=== PATIENT | male | born 1955 | race Caucasian/White ===

== ENCOUNTER 2025-08-11 08:14 | Inpatient (IN) | payer OTHER ==
[2025-08-11] VITALS (11 sets, daily range): BP systolic 133–151; BP diastolic 77–83; PULSE 64–79; RESP 16–22; TEMP 97.9–98.8; O2SAT 92–100
[~2025-08-11] VITALS: Ht 182.9 cm; Wt 87.0 kg
--- NOTE | 2025-08-11 09:03 | ED.PDOC ---
HPI Comments 70 year old male with PMHx of DM, HTN, and cardiovascular problems presents to the emergency department for chief complaint of shortness of breath that began 6 days ago. Pt also reports associated symptoms of a prolonged cough that causes a chest pain and radiates from the sternum to the lower right side of the chest. Pt also reports no normal bowel movement since 2 days ago. Pt denies syncope, dizziness, headache, fever, or chills. Chief Complaint: Shortness of Breath Time Seen by MD: 09:00 Reviewed Notes: Nurses Notes, Medications, Allergies Allergies: Coded Allergies: NO KNOWN ALLERGIES (Unverified , 08/11/25) per patient Information Source: Patient Mode of Arrival: Ambulatory Severity: Moderate Timing: Days Duration: Since onset Prehospital treatment: None Location: Chest (R), Substernal Cardiac Risk Factors: HTN, Diabetes PE Risk Factors: None Associated Signs and Symptoms: SOB, Other (chest pain, cough) Past Medical History PAST MEDICAL HISTORY: DM, HTN Constitutional: denies: chills, diaphoresis, fatigue, fever, malaise, sweats, weakness, others EENTM: denies: blurred vision, double vision, ear bleeding, ear discharge, ear drainage, ear pain, ear ringing, eye pain, eye redness, hearing loss, mouth pain, mouth swelling, nasal discharge, nose bleeding, nose congestion, nose pain, photophobia, tearing, throat pain, throat swelling, voice changes, others Respiratory: reports: cough, SOB at rest, shortness of breath, SOB with excertion; denies: hemoptysis, orthopnea, stridor, wheezing, others Cardiovascular: reports: chest pain; denies: dizzy spells, diaphoresis, Dyspnea on exertion, edema, irregular heart beat, left arm pain, lightheadedness, palpitations, PND, syncope, others Gastrointestinal: denies: abdomen distended, abdominal pain, blood streaked bowels, constipated, diarrhea, dysphagia, difficulty swallowing, hematemesis, melena, nausea, poor appetite, poor fluid intake, rectal bleeding, rectal pain, vomiting, others Genitourinary: denies: burning, dysuria, flank pain, frequency, hematuria, incontinence, penile discharge, penile sore, pain, testicle pain, testicle swelling, urgency, others Neurological: denies: dizziness, fainting, headache, left sided numbness, left sided weakness, numbness, paresthesia, pre-existing deficit, right sided numbness, right sided weakness, seizure, speech problems, tingling, tremors, weakness, others Musculoskeletal: denies: back pain, gout, joint pain, joint swelling, muscle pain, muscle stiffness, neck pain, others Integumetry: denies: bruises, change in color, change in hair/nails, dryness, laceration, lesions, lumps, rash, wounds, others Allergic/Immunocompromised: denies: Difficulty Healing, Frequent Infections, Hives, Itching, others Hematologic/Lymphatic: denies: anemia, blood clots, easy bleeding, easy bruising, swollen glands, others Endocrine: denies: excessive hunger, excessive sweating, excessive thirst, excessive urination, flushing, intolerance to cold, intolerance to heat, unexplained weight gain, unexplained weight loss, others Psychiatric: denies: anxiety, bipolar disorder, depression, hopeless, panic disorder, schizophrenia, sleepless, suicidal, others All Other Systems: Reviewed and Negative Physical Exam General Appearance: Moderate Distress HEENT: Normal ENT Inspection, Pharynx Normal, TMs Normal Neck: Full Range of Motion, Non-Tender, Normal, Normal Inspection Respiratory: Other (Coarse breath sounds) Cardiovascular: No Edema, No JVD, No Murmur, No Gallop, Normal Peripheral Pulses, Regular Rate/Rhythm Breast Exam: Deferred Gastrointestinal: No Organomegaly, Non Tender, No Pulsatile Mass, Normal Bowel Sounds, Soft Genitalia: Deferred Pelvic: Deferred Rectal: Deferred Extremities: No calf tenderness, Normal capillary refill, Normal inspection, Normal range of motion, Non-tender, No pedal edema Musculoskeletal : Apperance: Normal Neurologic: Alert, 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 Was a procedure done?: No CP Differential Dx Differential Diagnosis: A-fib, A-Flutter, Angina, Anxiety / Panic Attack, Atrial Dysrhythmia, Electrolyte Disorder X-Ray, Labs, Meds, VS Vital Signs Date Time Temp Pulse Resp B/P (MAP) Pulse Ox O2 Delivery O2 Flow Rate FiO2 12/22/25 14:23 98.8 69 16 135/79 (97) 99 98.8 08/11/25 11:14 99.4 64 16 134/73 (93) 95 99.4 08/11/25 08:31 98.2 69 18 153/85 96 98.2 Lab Test 08/11/25 10:52 Range/Units White Blood Count 8.2 4.4-10.8 10^3/uL Red Blood Count 5.07 4.5-5.90 10^6/uL Hemoglobin 15.4 13.5-17.5 g/dL Hematocrit 45.2 41.0-53.0 % Mean Corpuscular Volume 89.3 80.0-100.0 fL Mean Corpuscular Hemoglobin 30.4 28.0-32.0 pg Mean Corpuscular Hemoglobin Concent 34.1 32.0-36.0 g/dL Red Cell Distribution Width 14.6 H 11.8-14.3 % Platelet Count 213 140-450 10^3/uL Mean Platelet Volume 8.8 6.9-10.8 fL Neutrophils (%) (Auto) 72.3 37.0-80.0 % Lymphocytes (%) (Auto) 16.1 10.0-50.0 % Monocytes (%) (Auto) 10.5 0.0-12.0 % Eosinophils (%) (Auto) 0.4 0.0-7.0 % Basophils (%) (Auto) 0.7 0.0-2.0 % Neutrophils # (Auto) 5.9 1.6-8.6 10 ^3/uL Lymphocytes # (Auto) 1.3 0.4-5.4 10 ^3/uL Monocytes # (Auto) 0.9 0-1.3 10 ^3/uL Eosinophils # (Auto) 0 0-0.8 10 ^3/uL Basophils # (Auto) 0.1 0-0.2 10 ^3/uL Nucleated Red Blood Cells 0.1 % Sodium Level 139 136-145 mmol/L Potassium Level 3.4 L 3.5-5.1 mmol/L Chloride Level 99 98-107 mmol/L Carbon Dioxide Level 31 20-31 mmol/L Anion Gap 9 5-15 Blood Urea Nitrogen 10 9-23 mg/dL Creatinine 1.38 H 0.700-1.30 mg/dL Glomerular Filtration Rate Calc 54 >90 mL/min BUN/Creatinine Ratio 7.2 L 10.0-20.0 Serum Glucose 113 H 74-106 mg/dL Calcium Level 9.8 8.7-10.4 mg/dL Troponin I High Sensitivity 18 </=54 ng/L Patient alert. Came in because of shortness breath chest discomfort. Vitals stable. Answering all questions. Saturation pristine on room air. Blood pressure slightly elevated. Explained to the patient. Continue monitoring. Time of 1ST Reevaluation: 09:30 Reevaluation 1ST: Unchanged Patient Education/Counseling: Diagnosis, Treatment, Need For Follow Up Family Education/Counseling: Diagnosis, Treatment, Need For Follow Up, No Family Present SEPSIS Sepsis Screen Date sepsis recognized/suspect: Aug 11, 2025 Time Sepsis recognized/suspect: 830 Recent Procedure: No On Antibiotic Therapy: No Respiratory Rate >20: No Heart Rate >90: No Temp<36 C (96.8 F) or >38.3 C: No SBP <90 or MAP <65 mmHG: No New Acute Mental Status Change: No Is the patient on CPAP, BIPAP,: No Physician Orders Chest Portable (08/11/25 09:05) Urinalysis (08/11/25 09:05) Vital Signs Date Time Temp Pulse Resp B/P (MAP) Pulse Ox O2 Delivery O2 Flow Rate FiO2 08/11/25 14:23 98.8 69 16 135/79 (97) 99 98.8 08/11/25 11:14 99.4 64 16 134/73 (93) 95 99.4 08/11/25 08:31 98.2 69 18 153/85 96 98.2 Laboratory Tests Test 08/11/25 10:52 White Blood Count 8.2 10^3/uL (4.4-10.8) Departure 1 Departure Time of Disposition: 09:54 Impression: Primary Impression: Pneumonitis Disposition: 09 ADMITTED INPATIENT Admit to: Med Surg Condition: Guarded Critical Care Note Critical Care Time?: No Stability Stability form required: No Heart Score Heart Score: Heart Score Response (Comments) Value History Slightly Suspicious 0 EKG Normal 0 Age >65 2 Risk Factors >3 or Hx ASHD 2 Troponin Normal limit 0 Total 4 I personally scribed for LUCIAN ZARCO MD ([email or web address]) on 08/11/25 at 09:03. Electronically submitted by Jackeline Schmidt ([email or web address]). LUCIAN ZARCO MD Aug 11, 2025 09:03
--- NOTE | 2025-08-11 09:36 | DVH ---
CLINICAL INFORMATION: 70 years old, Male; sob. TECHNIQUE: Single AP portable chest radiograph was obtained. COMPARISON: None FINDINGS: Lungs: Clear. Cardiac: Heart size is within normal limits. Pulmonary vasculature: Unremarkable. Mediastinum/gianfranco: Moderate atherosclerotic calcification of the aortic arch. Bones: No acute osseous abnormality identified. Other: No other significant findings. IMPRESSION: No evidence of acute disease in the chest.
[2025-08-11 11:30] LABS: Hematocrit 45.2 % (41.0-53.0); Hemoglobin 15.4 g/dL (13.5-17.5); Mean Corpuscular Hemoglobin 30.4 pg (28.0-32.0); Mean Corpuscular Volume 89.3 fL (80.0-100.0); Nucleated Red Blood Cells % 0.1 %
[2025-08-11 11:32] LABS: Chloride 99 mmol/L (98-107); Sodium 139 mmol/L (136-145)
[2025-08-11 11:33] LABS: Anion Gap 9 (5-15); Calcium 9.8 mg/dL (8.7-10.4)
[2025-08-11 11:35] LABS: Carbon Dioxide 31 mmol/L (20-31); Potassium 3.4 mmol/L (3.5-5.1)
[2025-08-11 11:38] LABS: BUN/Creatinine Ratio 7.2 (10.0-20.0); Blood Urea Nitrogen 10 mg/dL (9-23)
[2025-08-11 11:52] LABS: Glucose 113 mg/dL (74-106)
[2025-08-11] MEDS ORDERED: DOCUSATE SOD 100 MG CAP PO PRN (14:30)
--- NOTE | 2025-08-11 14:52 | DVHHP2 ---
History of Present Illness Reason for Visit: Shortness of breath History of Present Illness Manuel Noyola is a 70-year-old male with past medical history of diabetes, hypertension, and hyperlipidemia, who came to the hospital for shortness of breath. Patient states he has been short of breath for about 1 week. He states he has had a cough and shortness of breath for about 1 week. He states he began having chest pain when he coughs and now the pain goes all the was down to his abdomen when he coughs prompting him to come to the hospital. Patient denied any drug use and stated he quite using drugs years ago, UDS was positive for methamphetamines. Cardiovascular: HTN, hyperipidemia Endocrine: Diabetes Past Surgical History: Other (right foot, right leg) Smoke: Quit (Monday08/03/2025) ALCOHOL: rare Drugs: None Lives: Other (Rents a room) Domestic Violence: Neg Review of Systems Constitutional: No: Fever, Chills, Sweats, Weakness, Malaise, Other Eyes: No: Pain, Vision change, Conjunctivae inflammation, Eyelid inflammation, Other, Redness ENT: No: Ear pain, Ear discharge, Nose pain, Nose discharge, Nose congestion, Mouth pain, Mouth swelling, Throat pain, Throat swelling, Other Respiratory: No: Cough, Dry, Shortness of breath, SOB with excertion, Wheezing, Hemoptysis, Pleuritic Pain, Sputum, Wheezing, Other Cardiovascular: No: Chest Pain, Palpitations, Orthopnea, Paroxysmal Noc. Dyspnea, Edema, Lt Headedness, Other Gastrointestinal: No: Nausea, Vomiting, Abdominal Pain, Diarrhea, Constipation, Melena, Hematochezia, Other Genitourinary: No Dysuria, No Frequency, No Incontinence, No Hematuria, No Retention, No Other Musculoskeletal: No: other, neck pain, shoulder pain, arm pain, back pain, hand pain, leg pain, foot pain Skin: No: Rash, Lesions, Jaundice, Bruising, Other Neurological: No: Weakness, Numbness, Incoordination, Change in speech, Confusion, Seizures, Other Allergies: Coded Allergies: NO KNOWN ALLERGIES (Unverified , 08/11/25) per patient Exam Vital Signs Vital Signs Date Time Temp Pulse Resp B/P (MAP) Pulse Ox O2 Delivery O2 Flow Rate FiO2 08/11/25 14:23 98.8 69 16 135/79 (97) 99 98.8 General Appearance: Alert, Oriented X3, Cooperative, mild distress HEENT: Atraumatic, PERRLA, Mucous membr. moist/pink Respiratory: Clear to auscultation, Normal air movement Cardiovascular: Regular rate, Normal S1, Normal S2 Abdominal: Normal bowel sounds, Soft, No tenderness Extremities: No clubbing, No cyanosis, No edema, Normal pulses Skin: No rashes, No breakdown, No significant lesion Neuro: Normal gait, Normal speech, Strength at 5/5 X4 ext Psych/Mental Status: Mental status NL, Mood NL Labs/Xrays Labs Test 08/11/25 10:52 Range/Units White Blood Count 8.2 4.4-10.8 10^3/uL Red Blood Count 5.07 4.5-5.90 10^6/uL Hemoglobin 15.4 13.5-17.5 g/dL Hematocrit 45.2 41.0-53.0 % Mean Corpuscular Volume 89.3 80.0-100.0 fL Mean Corpuscular Hemoglobin 30.4 28.0-32.0 pg Mean Corpuscular Hemoglobin Concent 34.1 32.0-36.0 g/dL Red Cell Distribution Width 14.6 H 11.8-14.3 % Platelet Count 213 140-450 10^3/uL Mean Platelet Volume 8.8 6.9-10.8 fL Neutrophils (%) (Auto) 72.3 37.0-80.0 % Lymphocytes (%) (Auto) 16.1 10.0-50.0 % Monocytes (%) (Auto) 10.5 0.0-12.0 % Eosinophils (%) (Auto) 0.4 0.0-7.0 % Basophils (%) (Auto) 0.7 0.0-2.0 % Neutrophils # (Auto) 5.9 1.6-8.6 10 ^3/uL Lymphocytes # (Auto) 1.3 0.4-5.4 10 ^3/uL Monocytes # (Auto) 0.9 0-1.3 10 ^3/uL Eosinophils # (Auto) 0 0-0.8 10 ^3/uL Basophils # (Auto) 0.1 0-0.2 10 ^3/uL Nucleated Red Blood Cells 0.1 % Sodium Level 139 136-145 mmol/L Potassium Level 3.4 L 3.5-5.1 mmol/L Chloride Level 99 98-107 mmol/L Carbon Dioxide Level 31 20-31 mmol/L Anion Gap 9 5-15 Blood Urea Nitrogen 10 9-23 mg/dL Creatinine 1.38 H 0.700-1.30 mg/dL Glomerular Filtration Rate Calc 54 >90 mL/min BUN/Creatinine Ratio 7.2 L 10.0-20.0 Serum Glucose 113 H 74-106 mg/dL Calcium Level 9.8 8.7-10.4 mg/dL Troponin I High Sensitivity 18 </=54 ng/L TECHNIQUE: Single AP portable chest radiograph was obtained. FINDINGS: Lungs: Clear. Cardiac: Heart size is within normal limits. Pulmonary vasculature: Unremarkable. Mediastinum/gianfranco: Moderate atherosclerotic calcification of the aortic arch. Bones: No acute osseous abnormality identified. Other: No other significant findings. IMPRESSION: No evidence of acute disease in the chest. SEPSIS Sepsis Screen Date sepsis recognized/suspect: Aug 11, 2025 Time Sepsis recognized/suspect: 830 Recent Procedure: No On Antibiotic Therapy: No Respiratory Rate >20: No Heart Rate >90: No Temp<36 C (96.8 F) or >38.3 C: No SBP <90 or MAP <65 mmHG: No New Acute Mental Status Change: No Is the patient on CPAP, BIPAP,: No Physician Orders Chest Portable (08/11/25 09:05) Urinalysis (08/11/25 09:05) Admit (08/11/25 14:26) Code Status (08/11/25 14:26) 2 Gm Sodium Diet (08/11/25 Dinner) Hydrocodone-Acet 5/325mg Tab ([place] /32 (08/11/25 14:30) Ondansetron Hcl (Zofran) (08/11/25 14:30) Docusate Sodium Capsule (Colace Capsule) (08/11/25 14:30) Complete Blood Count (08/12/25 04:00) Comprehensive Metabolic Panel (08/12/25 04:00) Condition: Serious (08/11/25 14:26) Acetaminophen Tablet (Tylenol Tablet) (08/11/25 14:30) Vital Signs Date Time Temp Pulse Resp B/P (MAP) Pulse Ox O2 Delivery O2 Flow Rate FiO2 08/11/25 14:23 98.8 69 16 135/79 (97) 99 98.8 08/11/25 11:14 99.4 64 16 134/73 (93) 95 99.4 08/11/25 08:31 98.2 69 18 153/85 96 98.2 Laboratory Tests Test 08/11/25 10:52 White Blood Count 8.2 10^3/uL (4.4-10.8) Assessment/Plan Assessment/Plan Assessment: Pneumonitis, Illicit drug use, Diabetes, Hypertension, Hyperlipidemia, Plan: Admit to Med-Surg, IV steroids, Breathing treatments, Supplemental oxygen as needed, Accu checks with sliding scale, Patient does not know what home medications he takes, Plan discussed with: Patient My Orders Orders - THERESA BENNETT Procedure Category Date Status Time Admit ADMIT 08/11/25 Transmitted 14:26 Code Status CODE 08/11/25 Transmitted 14:26 2 Gm Sodium Diet DIET 08/11/25 Transmitted Dinner Hydrocodone-Acet PHA 08/11/25 Transmitted 5/325mg Tab ([place] 14:30 Ondansetron Hcl PHA 08/11/25 Transmitted (Zofran) 14:30 Docusate Sodium PHA 08/11/25 Transmitted Capsule (Colace 14:30 Complete Blood Count LAB 08/12/25 Verified 04:00 Comprehensive LAB 08/12/25 Verified Metabolic Panel 04:00 Condition: Serious BIANKA 08/11/25 Transmitted 14:26 Acetaminophen Tablet PHA 08/11/25 Transmitted (Tylenol Tablet) 14:30 Date of Service: Aug 11, 2025 Billing Provider: THERESA BENNETT Common Visit Codes: [id number] INP/OBS CARE (MOD) THERESA BENNETT Aug 11, 2025 14:52
[2025-08-11] MEDS: IPRATROPIUM BROM 0.5 MG/2.5ML INH SOL NEB SCH (17:53)
[2025-08-11] MEDS: ALBUTEROL SULF 2.5 MG/0.5ML(0.5%) NEB SOLN NEB SCH (17:53)
[2025-08-11 21:04] LABS: Urine Protein, UAD TRACE (Negative)
[2025-08-11 21:09] LABS: Amphetamine Screen, Urine Pos (NEGATIVE); Barbiturate Scree,Urine Neg (NEGATIVE); Benzodiazephine Screen, Urine Neg (NEGATIVE); Cannabinoid Screen, Urine Neg (NEGATIVE); Cocaine Screen, Urine Neg (NEGATIVE); Opiate Scree,Urine Neg (NEGATIVE); Phencyclidine Screen, Urine Neg (NEGATIVE)
[2025-08-11] MEDS: methylPREDNISolone SOD SUCC 40 MG/ML VL IV SCH (23:59)
[2025-08-12] VITALS (13 sets, daily range): BP systolic 134–154; BP diastolic 76–92; PULSE 57–95; RESP 16–18; TEMP 97.7–99.6; O2SAT 91–99
[2025-08-12] MEDS: HYDROcodone-ACET 5/325MG TAB PO PRN
[2025-08-12 06:02] LABS: Hematocrit 43.5 % (41.0-53.0); Hemoglobin 14.8 g/dL (13.5-17.5); Mean Corpuscular Hemoglobin 29.9 pg (28.0-32.0); Mean Corpuscular Volume 87.8 fL (80.0-100.0); Nucleated Red Blood Cells % 0.1 %
[2025-08-12 06:48] LABS: Alanine Aminotransferase 15 U/L (7-40); Albumin 4.3 g/dL (3.2-4.8); Alkaline Phosphatase 67 U/L (46-116); Anion Gap 11 (5-15); BUN/Creatinine Ratio 13.4 (10.0-20.0); Bilirubin, Total 0.6 mg/dL (0.2-1.0); Blood Urea Nitrogen 16 mg/dL (9-23); Calcium 9.4 mg/dL (8.7-10.4); Carbon Dioxide 26 mmol/L (20-31); Chloride 101 mmol/L (98-107); Sodium 138 mmol/L (136-145); Total Protein 7.1 g/dL (5.7-8.2)
[2025-08-12 06:50] LABS: Glucose 148 mg/dL (74-106); Potassium 3.5 mmol/L (3.5-5.1)
--- NOTE | 2025-08-12 07:37 | DVH ---
CLINICAL INFORMATION: Shortness of breath. TECHNIQUE: Single AP portable chest radiograph was obtained. COMPARISON: XY CHEST PORTABLE on DOS: 08/11/25 FINDINGS: Bilateral interstitial opacities appear to be new compared to the prior exam. No focal consolidation. No pneumothorax or pleural effusion. No other significant interval change. IMPRESSION: Bilateral interstitial opacities, may be infectious or inflammatory in nature or less likely due to interstitial pulmonary edema. New compared to the prior exam. Correlate with clinical findings.
--- NOTE | 2025-08-12 12:55 | DVHPN2 ---
Subjective Patient reporting right flank pain. Reviewed: Care Plan, H&P, Labs, Medications Changes from previous H/P or p: No Changes General: Per HPI Eyes: No Pain, No Vision change, No Conjunctivae inflammation, No Eyelid inflammation, No Other, No Redness ENT: No Ear pain, No Ear discharge, No Nose pain, No Nose discharge, No Nose congestion, No Mouth pain, No Mouth swelling, No Throat pain, No Throat swelling, No Other Cardiovascular: No Chest Pain, No Palpitations, No Orthopnea, No Paroxysmal Noc. Dyspnea, No Edema, No Lt Headedness, No Other Respiratory: No Cough, No Dry, No Shortness of breath, No SOB with excertion, No Wheezing, No Hemoptysis, No Pleuritic Pain, No Sputum, No Other Gastrointestinal: No Nausea, No Vomiting, No Abdominal Pain, No Diarrhea, No Constipation, No Melena, No Hematochezia, No Other Genitourinary: No Dysuria, No Frequency, No Incontinence, No Hematuria, No Retention, No Other Musculoskeletal: No other, No neck pain, No shoulder pain, No arm pain, No back pain, No hand pain, No leg pain, No foot pain Skin: No Rash, No Lesions, No Jaundice, No Bruising, No Other Objective Vitals Vital Signs Date Time Temp Pulse Resp B/P (MAP) Pulse Ox O2 Delivery O2 Flow Rate FiO2 08/12/25 11:24 65 16 99 08/12/25 11:18 Nasal Cannula* 2 28 08/12/25 09:09 97.8 145/82 (103) 97.8 Intake/Output Intake and Output 08/12/25 07:00 Intake Total 637 ml Balance 637 ml Intake Oral 637 ml # Voids 5 General Appearance: Alert, Oriented X3, Cooperative, No acute distress HEENT: Atraumatic, PERRLA Lungs: Clear to auscultation, Normal air movement Cardiovascular: Normal S1, Normal S2 Abdomen: Normal bowel sounds, Soft, No tenderness, No hepatospenomegaly Back: Flank Tenderness (Right) Musculoskeletal: Normal sensory function, Normal motor function Neuro: Normal speech Skin: Dry, Intact Psych/Mental Status: Mental status NL, Mood NL Medications Current Medications Medications Dose Ordered Sig/Curtis Route Start Time Stop Time Status Last Admin Dose Admin Acetaminophen/ Hydrocodone Bitart 1 tab Q4HP PRN PO 08/11/25 14:30 08/12/25 11:51 1 TAB Ondansetron HCl 4 mg Q4HP PRN IV 08/11/25 14:30 Docusate Sodium 100 mg BIDPRN PRN PO 08/11/25 14:30 Acetaminophen 650 mg Q6HP PRN PO 08/11/25 14:30 Ipratropium [place] 0.5 mg Q6HWA NEB 08/11/25 18:00 08/12/25 11:18 0.5 MG Albuterol 2.5 mg Q6HWA [facility] 08/11/25 18:00 08/12/25 11:18 2.5 MG Methylprednisolone Sodium Succinate 40 mg BID IV 08/11/25 22:00 08/11/25 23:59 40 MG Laboratory Results Laboratory Tests 08/12/25 05:29 Chemistry Test 08/12/25 05:29 Albumin 4.3 g/dL (3.2-4.8) Calcium Level 9.4 mg/dL (8.7-10.4) Total Protein 7.1 g/dL (5.7-8.2) LFT Test 08/12/25 05:29 Alanine Aminotransferase (ALT) 15 U/L (7-40) Alkaline Phosphatase 67 U/L (46-116) Aspartate Amino Transferase (AST) 29 U/L (13-40) Total Bilirubin 0.6 mg/dL (0.2-1.0) Urinalysis Test 08/11/25 14:30 Urine Color Yellow (Yellow) Urine Clarity Clear (Clear) Urine pH 5.5 (5.0-9.0) Urine Specific [place] 1.019 (1.001-1.035) Urine Protein Trace (Negative) H Urine Ketones Trace (Negative) Urine Blood 2+ /uL (Negative) H Urine Nitrite Negative (Negative) Urine Bilirubin Negative (Negative) Urine Urobilinogen Normal mg/dL (Negative) Urine Leukocyte Esterase Negative /uL (Negative) Urine RBC 13 /hpf (0 - 3) Urine Microscopic WBC 5 /HPF (0-3) H Urine Squamous Epithelial Cells Few /hpf (<5) Urine Bacteria None seen /hpf (None Seen) Urine Mucus Few (None Seen) Urine Glucose 4+ mg/dL (Normal) H Labs and/or images reviewed: Labs reviewed by me, Image(s) reviewed by me Assessment/Plan Assessment/Plan Impression: -acute hypoxic respiratory failure -polysubstance abuse including amphetamines and nicotine -hematuria -Nephrolithiasis -acute kidney injury, probable vasomotor nephropathy -acute pneumonitis secondary to amphetamine use Plan: -kidney ultrasound -gentle IV hydration -lorazepam PRN withdrawal symptoms -bronchodilators -Lifestyle modification education: 10 minutes discussed with the patient need to stop smoking illicit drugs -repeat labs in a.m. Total time spent with patient discussing and formulating plan of care: 35 minutes. This medical document was created using an electronic medical record system with [employer] dictation system. Although this document has been carefully reviewed, there may still be some phonetic and typographical errors. These areas are purely typographical due to imperfections of the software programs, and do not reflect any compromise in the patient's medical care. Plan discussed with: Patient, Other (RN) My Orders Orders - ABBIE TOSCANO NP Procedure Category Date Status Time Kidney US 08/12/25 Taken 12:20 Date of Service: Aug 12, 2025 Billing Provider: ABBIE TOSCANO NP Common Visit Codes: [id number] INP/OBS CARE(HIGH) ABBIE TOSACNO NP Aug 12, 2025 12:55
--- NOTE | 2025-08-12 13:21 | DVH ---
CLINICAL HISTORY: nephrolithiasis TECHNIQUE: Complete ultrasound exam of the kidneys and bladder was performed. COMPARISON: None FINDINGS: The right kidney has normal echogenicity and measures 9.7 cm. There is no focal parenchymal abnormality or evidence for stone. There is no hydronephrosis. The left kidney has normal echogenicity and measures 10.5 cm. There is no focal parenchymal abnormality or evidence for stone. There is no hydronephrosis. The bladder is distended with a bladder volume of 632 mL. The patient was unable to void. There is mild diffuse bladder wall thickening measuring 3 mm. IMPRESSION: No significant sonographic abnormality of the kidneys. Distended bladder with volume of 632 mL. Patient unable to void. Mild diffuse bladder wall thickening. Please correlate with laboratory values.
[2025-08-13] VITALS (16 sets, daily range): BP systolic 113–146; BP diastolic 54–87; PULSE 63–92; RESP 17–22; TEMP 97.7–99.8; O2SAT 91–99
[2025-08-13 06:34] LABS: Hematocrit 42.9 % (41.0-53.0); Hemoglobin 14.4 g/dL (13.5-17.5); Mean Corpuscular Hemoglobin 29.9 pg (28.0-32.0); Mean Corpuscular Volume 89.0 fL (80.0-100.0); Nucleated Red Blood Cells % 0.0 %
[2025-08-13 06:56] LABS: Anion Gap 7 (5-15); Carbon Dioxide 29 mmol/L (20-31); Chloride 101 mmol/L (98-107); Potassium 4.2 mmol/L (3.5-5.1); Sodium 137 mmol/L (136-145)
[2025-08-13 06:57] LABS: Calcium 9.4 mg/dL (8.7-10.4)
[2025-08-13 07:02] LABS: BUN/Creatinine Ratio 22.6 (10.0-20.0)
[2025-08-13 07:05] LABS: Blood Urea Nitrogen 26 mg/dL (9-23); Glucose 158 mg/dL (74-106)
[2025-08-13] MEDS ORDERED: DEXTROSE (50%) 50ML SYRG IV PRN (08:45)
--- NOTE | 2025-08-13 10:18 | DVHPN2 ---
Subjective Patient reporting right flank pain. Reviewed: Care Plan, H&P, Labs, Medications Changes from previous H/P or p: No Changes General: Per HPI Eyes: No Pain, No Vision change, No Conjunctivae inflammation, No Eyelid inflammation, No Other, No Redness ENT: No Ear pain, No Ear discharge, No Nose pain, No Nose discharge, No Nose congestion, No Mouth pain, No Mouth swelling, No Throat pain, No Throat swelling, No Other Cardiovascular: No Chest Pain, No Palpitations, No Orthopnea, No Paroxysmal Noc. Dyspnea, No Edema, No Lt Headedness, No Other Respiratory: No Cough, No Dry, No Shortness of breath, No SOB with excertion, No Wheezing, No Hemoptysis, No Pleuritic Pain, No Sputum, No Other Gastrointestinal: No Nausea, No Vomiting, No Abdominal Pain, No Diarrhea, No Constipation, No Melena, No Hematochezia, No Other Genitourinary: No Dysuria, No Frequency, No Incontinence, No Hematuria, No Retention, No Other Musculoskeletal: No other, No neck pain, No shoulder pain, No arm pain, No back pain, No hand pain, No leg pain, No foot pain Skin: No Rash, No Lesions, No Jaundice, No Bruising, No Other Objective Vitals Vital Signs Date Time Temp Pulse Resp B/P (MAP) Pulse Ox O2 Delivery O2 Flow Rate FiO2 08/13/25 09:00 98.7 71 18 124/61 (82) 92 98.7 08/13/25 07:29 Room Air 0.0 08/13/25 07:29 21 Intake/Output Intake and Output 08/13/25 07:00 Intake Total 1350 ml Balance 1350 ml Intake Oral 1250 ml IV Total 100 ml # Voids 10 # Bowel Movements 2 General Appearance: Alert, Oriented X3, Cooperative, No acute distress HEENT: Atraumatic, PERRLA Lungs: Clear to auscultation, Normal air movement Cardiovascular: Normal S1, Normal S2 Abdomen: Normal bowel sounds, Soft, No tenderness, No hepatospenomegaly Back: Flank Tenderness (Right) Musculoskeletal: Normal sensory function, Normal motor function Neuro: Normal speech Skin: Dry, Intact Psych/Mental Status: Mental status NL, Mood NL Medications Current Medications Medications Dose Ordered Sig/Curtis Route Start Time Stop Time Status Last Admin Dose Admin Acetaminophen/ Hydrocodone Bitart 1 tab Q4HP PRN PO 08/11/25 14:30 08/13/25 09:03 1 TAB Ondansetron HCl 4 mg Q4HP PRN IV 08/11/25 14:30 Docusate Sodium 100 mg BIDPRN PRN PO 08/11/25 14:30 Acetaminophen 650 mg Q6HP PRN PO 08/11/25 14:30 Ipratropium [place] 0.5 mg Q6HWA NEB 08/11/25 18:00 08/13/25 07:09 0.5 MG Albuterol 2.5 mg Q6HWA NEB 08/11/25 18:00 08/13/25 07:09 2.5 MG Methylprednisolone Sodium Succinate 40 mg BID IV 08/11/25 22:00 08/13/25 08:55 40 MG Ceftriaxone Sodium 50 ml @ 100 mls/hr DAILY@09 IV 08/12/25 16:30 08/13/25 08:54 100 MLS/HR Diagnostic Test (Pha) 1 strip ACHS 08/13/25 11:30 Insulin Human Regular HS SC 08/13/25 22:00 Insulin Human Regular AC SC 08/13/25 11:30 Dextrose 50 ml UD PRN IV 08/13/25 08:45 Tamsulosin HCl 0.4 mg QPM PO 08/13/25 18:00 Laboratory Results Laboratory Tests 08/13/25 05:53 Chemistry Test 08/13/25 05:53 Calcium Level 9.4 mg/dL (8.7-10.4) Urinalysis Test 08/11/25 14:30 Urine Color Yellow (Yellow) Urine Clarity Clear (Clear) Urine pH 5.5 (5.0-9.0) Urine Specific [place] 1.019 (1.001-1.035) Urine Protein Trace (Negative) H Urine Ketones Trace (Negative) Urine Blood 2+ /uL (Negative) H Urine Nitrite Negative (Negative) Urine Bilirubin Negative (Negative) Urine Urobilinogen Normal mg/dL (Negative) Urine Leukocyte Esterase Negative /uL (Negative) Urine RBC 13 /hpf (0 - 3) Urine Microscopic WBC 5 /HPF (0-3) H Urine Squamous Epithelial Cells Few /hpf (<5) Urine Bacteria None seen /hpf (None Seen) Urine Mucus Few (None Seen) Urine Glucose 4+ mg/dL (Normal) H Labs and/or images reviewed: Labs reviewed by me, Image(s) reviewed by me Assessment/Plan Assessment/Plan Impression: -acute hypoxic respiratory failure -polysubstance abuse including amphetamines and nicotine -hematuria -Nephrolithiasis -acute kidney injury, probable vasomotor nephropathy -acute pneumonitis secondary to amphetamine use Plan: Events: No events overnight. Continues to have right upper quadrant pain. -kidney ultrasound: Increased bladder volume -postvoid residual over 200 mL. Start tamsulosin -CT with IV contrast of abdomen and pelvis -gentle IV hydration -lorazepam PRN withdrawal symptoms -bronchodilators -repeat labs in a.m. Total time spent with patient discussing and formulating plan of care: 35 minutes. This medical document was created using an electronic medical record system with [employer] dictation system. Although this document has been carefully reviewed, there may still be some phonetic and typographical errors. These areas are purely typographical due to imperfections of the software programs, and do not reflect any compromise in the patient's medical care. Plan discussed with: Patient, Other (RN) My Orders Orders - ABBIE TOSCANO NP Procedure Category Date Status Time Kidney US 08/12/25 Resulted 12:20 Ceftriaxone 1gm/50ml PHA 08/12/25 In Process (Rocephin) 16:30 Communication Order ORDERS 08/12/25 Transmitted 16:16 Psa Total+% Free LAB 08/12/25 In Process 16:16 Tamsulosin PHA 08/13/25 In Process Hydrochloride (Flomax) 18:00 Ct Ab Pel With Iv Con CT 08/13/25 Transmitted Only 10:14 Date of Service: Aug 13, 2025 Billing Provider: ABBIE TOSCANO NP Common Visit Codes: [id number] INP/OBS CARE(HIGH) ABBIE TOSCANO NP Aug 13, 2025 10:18
[2025-08-13] MEDS: IOHEXOL 350 MG/ML 100ML IJ ONE (10:43)
--- NOTE | 2025-08-13 11:32 | DVH ---
INDICATION: right upper quadrant pain TECHNIQUE: CT axial images of the abdomen and pelvis are obtained with intravenous contrast. Coronal and sagittal reformats were obtained. Radiation Dose Information: CTDI volume is 16.64 mGy. Dose-length product is 1075.99 mGy*cm COMPARISON: None FINDINGS: Examination degraded by motion. Lung bases demonstrate no pleural effusion. Adrenal glands, spleen, pancreas unremarkable. Cholelithiasis. No enhancing hepatic lesion. Kidneys demonstrate no hydronephrosis. 1.5 cm left renal upper pole indeterminate lesion. Stomach is partially distended. Small bowel loops are normal in caliber. Moderate to large volume stool in the colon. No secondary signs for appendicitis. Abdominal aortic atherosclerotic disease. Bladder is partially distended. Bladder wall thickening 2 9 mm. No free pelvic fluid. No inguinal lymphadenopathy. Moderate thoracolumbar degenerative disc disease and facet hypertrophic changes. IMPRESSION: Examination degraded by motion. Cholelithiasis. Moderate to large volume stool within the colon. Indeterminate left renal upper pole lesion measuring 1.5 cm. This probably represents a cyst however complex lesion can not be ruled out. Recommend MRI abdomen with and without contrast to evaluate. Bladder wall thickening which can be secondary to cystitis, neurogenic bladder, outlet obstruction, infiltrative/neoplastic etiologies. Other findings as described.
[2025-08-13] MEDS: InsuLIN REG 1unit/0.01ml Soln (100units/ml) SC SCH ×2 (12:51→22:15)
[2025-08-13] MEDS: TAMSULOSIN HYDROCHLORIDE 0.4 MG CAP PO ONE (12:51)
[2025-08-13] MEDS: ACCU-CHEK COMFORT CURVE STRIP VI SCH (12:52)
[2025-08-13] MEDS: TAMSULOSIN HYDROCHLORIDE 0.4 MG CAP PO SCH (17:40)
[2025-08-14] VITALS (16 sets, daily range): BP systolic 101–133; BP diastolic 67–80; PULSE 63–109; RESP 16–19; TEMP 97.9–98.7; O2SAT 92–100
[2025-08-14 08:07] LABS: Prostate Specific Antigen 0.5 ng/mL (0.0-4.0)
--- NOTE | 2025-08-14 12:29 | DVHPN2 ---
Reviewed: Care Plan, H&P, Labs, Medications Changes from previous H/P or p: No Changes General: Per HPI Eyes: No Pain, No Vision change, No Conjunctivae inflammation, No Eyelid inflammation, No Other, No Redness ENT: No Ear pain, No Ear discharge, No Nose pain, No Nose discharge, No Nose congestion, No Mouth pain, No Mouth swelling, No Throat pain, No Throat swelling, No Other Cardiovascular: No Chest Pain, No Palpitations, No Orthopnea, No Paroxysmal Noc. Dyspnea, No Edema, No Lt Headedness, No Other Respiratory: No Cough, No Dry, No Shortness of breath, No SOB with excertion, No Wheezing, No Hemoptysis, No Pleuritic Pain, No Sputum, No Other Gastrointestinal: No Nausea, No Vomiting, No Abdominal Pain, No Diarrhea, No Constipation, No Melena, No Hematochezia, No Other Genitourinary: No Dysuria, No Frequency, No Incontinence, No Hematuria, No Retention, No Other Musculoskeletal: No other, No neck pain, No shoulder pain, No arm pain, No back pain, No hand pain, No leg pain, No foot pain Skin: No Rash, No Lesions, No Jaundice, No Bruising, No Other Objective Vitals Vital Signs Date Time Temp Pulse Resp B/P (MAP) Pulse Ox O2 Delivery O2 Flow Rate FiO2 08/14/25 12:26 87 18 100 08/14/25 12:20 Nasal Cannula 1.0 08/14/25 12:20 24 08/14/25 09:40 124/76 08/14/25 09:21 98.1 98.1 Intake/Output Intake and Output 08/14/25 07:00 Intake Total 1420 ml Balance 1420 ml Intake Oral 1420 ml # Voids 9 General Appearance: Alert, Oriented X3, Cooperative, No acute distress HEENT: Atraumatic, PERRLA Lungs: Clear to auscultation, Normal air movement Cardiovascular: Normal S1, Normal S2 Abdomen: Normal bowel sounds, Soft, No tenderness, No hepatospenomegaly Back: Flank Tenderness (Right) Musculoskeletal: Normal sensory function, Normal motor function Neuro: Normal speech Skin: Dry, Intact Psych/Mental Status: Mental status NL, Mood NL Medications Current Medications Medications Dose Ordered Sig/Curtis Route Start Time Stop Time Status Last Admin Dose Admin Acetaminophen/ Hydrocodone Bitart 1 tab Q4HP PRN PO 12/22/25 14:30 08/14/25 06:55 1 TAB Ondansetron HCl 4 mg Q4HP PRN IV 08/11/25 14:30 Docusate Sodium 100 mg BIDPRN PRN PO 08/11/25 14:30 Acetaminophen 650 mg Q6HP PRN PO 08/11/25 14:30 Ipratropium [place] 0.5 mg Q6HWA NEB 08/11/25 18:00 08/14/25 12:20 0.5 MG Albuterol 2.5 mg Q6HWA NEB 08/11/25 18:00 08/14/25 12:20 2.5 MG Methylprednisolone Sodium Succinate 40 mg BID IV 08/11/25 22:00 08/14/25 09:01 40 MG Diagnostic Test (Pha) 1 strip ACHS 08/13/25 11:30 08/14/25 06:56 1 STRIP Insulin Human Regular HS SC 08/13/25 22:00 08/13/25 22:15 4 UNITS Insulin Human Regular AC SC 08/13/25 11:30 08/14/25 06:53 3 UNITS Dextrose 50 ml UD PRN IV 08/13/25 08:45 Tamsulosin HCl 0.4 mg QPM PO 08/13/25 18:00 08/13/25 17:40 0.4 MG Laboratory Results Laboratory Tests 08/13/25 05:53 Urinalysis Test 08/11/25 14:30 Urine Color Yellow (Yellow) Urine Clarity Clear (Clear) Urine pH 5.5 (5.0-9.0) Urine Specific [place] 1.019 (1.001-1.035) Urine Protein Trace (Negative) H Urine Ketones Trace (Negative) Urine Blood 2+ /uL (Negative) H Urine Nitrite Negative (Negative) Urine Bilirubin Negative (Negative) Urine Urobilinogen Normal mg/dL (Negative) Urine Leukocyte Esterase Negative /uL (Negative) Urine RBC 13 /hpf (0 - 3) Urine Microscopic WBC 5 /HPF (0-3) H Urine Squamous Epithelial Cells Few /hpf (<5) Urine Bacteria None seen /hpf (None Seen) Urine Mucus Few (None Seen) Urine Glucose 4+ mg/dL (Normal) H Labs and/or images reviewed: Labs reviewed by me, Image(s) reviewed by me Assessment/Plan Assessment/Plan 08/13: Events: No events overnight. Continues to have right upper quadrant pain. 08/14: Covering from primary hospitalist. Patient today with faint wheezing, distant breath sounds, some rales in the bibasilar lobes, no pitting edema. Patient endorses meth use 2 weeks ago, smoking 1 pack per day, last use 8 years ago. We will get echocardiogram and right upper quadrant ultrasound he complains of right upper quadrant pain. Echo to assess RVSP. Likely hypoxemia from methamphetamine and possible COPD. Continue primary team's management. Impression: -acute hypoxic respiratory failure -polysubstance abuse including amphetamines and nicotine -hematuria -Nephrolithiasis -acute kidney injury, probable vasomotor nephropathy -acute pneumonitis secondary to amphetamine use Plan: -kidney ultrasound: Increased bladder volume -postvoid residual over 200 mL. Start tamsulosin -CT with IV contrast of abdomen and pelvis -gentle IV hydration -lorazepam PRN withdrawal symptoms -bronchodilators -repeat labs in a.m. Med surge Full code Plan discussed with: Patient My Orders Orders - FRANCISCA LINDSAY MD Procedure Category Date Status Time Echo 2d Mode Cardiac US 08/14/25 Logged DOP 11:48 Date of Service: Aug 14, 2025 Billing Provider: FRANCISCA LINDSAY MD Common Visit Codes: [id number] INP/OBS CARE(HIGH) FRANCISCA LINDSAY MD Aug 14, 2025 12:29
--- NOTE | 2025-08-14 20:35 | DVHSR ---
APPROVED REPORT EXAM: Two-dimensional and M-mode echocardiogram with Doppler and color Doppler. Blood Pressure: 124/76 mmHg INDICATION hypoxemia, assess RVSP RISK FACTORS Obesity: Height: 6'0, Weight: 207 DIMENSIONS LVDd 3.9 (3.8-5.7cm) LA (2D) 4.2 (1.9-4.0cm) Aortic Root 3.1 (2.0-3.7cm) LVDs 2.6 (2.5-4.0cm) LA (MM) (1.9-4.0cm) Aortic Cusp Exc 1.6 (1.5-2.0cm) EF (%) 60.0 (55-70%) Rt. Atrium 2.8 (1.9-4.0cm) Asc. Aorta cm IVSd 0.8 (0.7-1.1cm) RV (D) 2.9 (1.8-2.4cm) PWd 0.9 (0.7-1.1cm) Mitral Valve Mitral Mitral Stenosis E wave 0.83m/s MV Mean GR. mmHg A wave 1.26m/s MV Peak GR. mmHg E/A ratio 0.7 2D MVA cm2 DECEL Time 195ms PRESS 1/2 Time ms Aortic Valve Aortic Valve Aortic Stenosis V1 1.00m/s AO Mean GR. 8mmHg V2 1.90m/s AO Peak GR. 13mmHg LVOT Diameter 1.9 (1.8-2.4cm) Doppler GABINO 1.49cm2 Pulmonic Valve V2 0.80m/s Other Information Technically limited study due to body habitus.patient position. Conclusion LV EF IS 65% NORMAL VALVES NORMAL RV FUNCTION NO EFFUSION
[2025-08-15] VITALS (15 sets, daily range): BP systolic 114–148; BP diastolic 77–92; PULSE 79–102; RESP 16–20; TEMP 98–99.1; O2SAT 91–100
[2025-08-15 06:23] LABS: Hematocrit 40.5 % (41.0-53.0); Hemoglobin 13.6 g/dL (13.5-17.5); Mean Corpuscular Hemoglobin 29.8 pg (28.0-32.0); Mean Corpuscular Volume 88.9 fL (80.0-100.0); Nucleated Red Blood Cells % 0.1 %
[2025-08-15 06:35] LABS: Alanine Aminotransferase 21 U/L (7-40); Albumin 4.0 g/dL (3.2-4.8); Alkaline Phosphatase 56 U/L (46-116); Anion Gap 8 (5-15); BUN/Creatinine Ratio 21.8 (10.0-20.0); Calcium 9.3 mg/dL (8.7-10.4); Carbon Dioxide 27 mmol/L (20-31); Chloride 103 mmol/L (98-107); Potassium 4.6 mmol/L (3.5-5.1); Sodium 138 mmol/L (136-145); Total Protein 6.7 g/dL (5.7-8.2)
[2025-08-15 06:36] LABS: Bilirubin, Total 0.4 mg/dL (0.2-1.0)
[2025-08-15 06:43] LABS: Blood Urea Nitrogen 24 mg/dL (9-23); Glucose 152 mg/dL (74-106)
[2025-08-15] MEDS: LACTULOSE 20Gm/30ML SOLN PO ONE (11:00)
--- NOTE | 2025-08-15 13:54 | DVHPN2 ---
Subjective Patient reporting generalized abdominal pain Reviewed: Care Plan, H&P, Labs, Medications Changes from previous H/P or p: No Changes General: Per HPI Eyes: No Pain, No Vision change, No Conjunctivae inflammation, No Eyelid inflammation, No Other, No Redness ENT: No Ear pain, No Ear discharge, No Nose pain, No Nose discharge, No Nose congestion, No Mouth pain, No Mouth swelling, No Throat pain, No Throat swelling, No Other Cardiovascular: No Chest Pain, No Palpitations, No Orthopnea, No Paroxysmal Noc. Dyspnea, No Edema, No Lt Headedness, No Other Respiratory: No Cough, No Dry, No Shortness of breath, No SOB with excertion, No Wheezing, No Hemoptysis, No Pleuritic Pain, No Sputum, No Other Gastrointestinal: No Nausea, No Vomiting, No Abdominal Pain, No Diarrhea, No Constipation, No Melena, No Hematochezia, No Other Genitourinary: No Dysuria, No Frequency, No Incontinence, No Hematuria, No Retention, No Other Musculoskeletal: No other, No neck pain, No shoulder pain, No arm pain, No back pain, No hand pain, No leg pain, No foot pain Skin: No Rash, No Lesions, No Jaundice, No Bruising, No Other Objective Vitals Vital Signs Date Time Temp Pulse Resp B/P (MAP) Pulse Ox O2 Delivery O2 Flow Rate FiO2 08/15/25 11:12 83 16 99 08/15/25 11:06 Room Air 0.0 08/15/25 11:06 21 08/15/25 09:00 98.4 148/89 (108) 98.4 Intake/Output Intake and Output 08/15/25 07:00 Intake Total 750 ml Balance 750 ml Intake Oral 700 ml IV Total 50 ml # Voids 8 General Appearance: Alert, Oriented X3, Cooperative, No acute distress HEENT: Atraumatic, PERRLA Lungs: Clear to auscultation, Normal air movement Cardiovascular: Normal S1, Normal S2 Abdomen: Normal bowel sounds, Soft, No tenderness, No hepatospenomegaly Back: Flank Tenderness (Right) Musculoskeletal: Normal sensory function, Normal motor function Neuro: Normal speech Skin: Dry, Intact Psych/Mental Status: Mental status NL, Mood NL Medications Current Medications Medications Dose Ordered Sig/Curtis Route Start Time Stop Time Status Last Admin Dose Admin Acetaminophen/ Hydrocodone Bitart 1 tab Q4HP PRN PO 08/11/25 14:30 08/15/25 11:01 1 TAB Ondansetron HCl 4 mg Q4HP PRN IV 08/11/25 14:30 Docusate Sodium 100 mg BIDPRN PRN PO 08/11/25 14:30 Acetaminophen 650 mg Q6HP PRN PO 08/11/25 14:30 Ipratropium [place] 0.5 mg Q6HWA NEB 08/11/25 18:00 08/15/25 11:06 0.5 MG Albuterol 2.5 mg Q6HWA NEB 08/11/25 18:00 08/15/25 11:06 2.5 MG Methylprednisolone Sodium Succinate 40 mg BID IV 08/11/25 22:00 08/15/25 09:43 40 MG Diagnostic Test (Pha) 1 strip ACHS 08/13/25 11:30 08/15/25 11:38 1 STRIP Insulin Human Regular HS SC 08/13/25 22:00 08/14/25 22:13 2 UNITS Insulin Human Regular AC SC 08/13/25 11:30 08/15/25 11:10 3 UNITS Dextrose 50 ml UD PRN IV 08/13/25 08:45 Tamsulosin HCl 0.4 mg QPM PO 08/13/25 18:00 08/14/25 17:29 0.4 MG Laboratory Results Laboratory Tests 08/15/25 05:52 Chemistry Test 08/15/25 05:52 Albumin 4.0 g/dL (3.2-4.8) Calcium Level 9.3 mg/dL (8.7-10.4) Total Protein 6.7 g/dL (5.7-8.2) LFT Test 08/15/25 05:52 Alanine Aminotransferase (ALT) 21 U/L (7-40) Alkaline Phosphatase 56 U/L (46-116) Aspartate Amino Transferase (AST) 18 U/L (13-40) Total Bilirubin 0.4 mg/dL (0.2-1.0) Urinalysis Test 08/11/25 14:30 Urine Color Yellow (Yellow) Urine Clarity Clear (Clear) Urine pH 5.5 (5.0-9.0) Urine Specific [place] 1.019 (1.001-1.035) Urine Protein Trace (Negative) H Urine Ketones Trace (Negative) Urine Blood 2+ /uL (Negative) H Urine Nitrite Negative (Negative) Urine Bilirubin Negative (Negative) Urine Urobilinogen Normal mg/dL (Negative) Urine Leukocyte Esterase Negative /uL (Negative) Urine RBC 13 /hpf (0 - 3) Urine Microscopic WBC 5 /HPF (0-3) H Urine Squamous Epithelial Cells Few /hpf (<5) Urine Bacteria None seen /hpf (None Seen) Urine Mucus Few (None Seen) Urine Glucose 4+ mg/dL (Normal) H Labs and/or images reviewed: Labs reviewed by me, Image(s) reviewed by me Assessment/Plan Assessment/Plan Impression: -acute hypoxic respiratory failure -polysubstance abuse including amphetamines and nicotine -hematuria -Nephrolithiasis -acute kidney injury, probable vasomotor nephropathy -acute pneumonitis secondary to amphetamine use Plan: Events: No events overnight. Continues to have generalized abdominal pain. Patient noted to have more pain with palpation in his lower quadrant this. CT of abdomen and pelvis reveals cholelithiasis. Bilirubin, LFTs normal. Negative Nash's sign. -continue tamsulosin -bowel regimen -gentle IV hydration -lorazepam PRN withdrawal symptoms -bronchodilators -repeat labs in a.m. Total time spent with patient discussing and formulating plan of care: 35 minutes. This medical document was created using an electronic medical record system with [email or web address] dictation system. Although this document has been carefully reviewed, there may still be some phonetic and typographical errors. These areas are purely typographical due to imperfections of the software programs, and do not reflect any compromise in the patient's medical care. Plan discussed with: Patient, Other (RN) Date of Service: Aug 15, 2025 Billing Provider: ABBIE TOSCANO NP Common Visit Codes: [id number] INP/OBS CARE(HIGH) ABBIE TOSCANO NP Aug 15, 2025 13:54
[2025-08-15] MEDS: METOCLOPRAMIDE HCL 5MG/ml INJ 2ml VIAL IV SCH (14:52)
--- NOTE | 2025-08-15 14:52 | DVH ---
EXAM: XY KUB ABDOMEN SINGLE VIEW INDICATION: abdominal pain COMPARISON: None TECHNIQUE: 2 radiographic views of the abdomen. FINDINGS: Abnormal nonspecific bowel-gas pattern with diffuse air-filled distention of small and large bowel loops. Moderate volume colonic stool. There is no definite evidence for pneumoperitoneum. No abnormal calcifications noted. IMPRESSION: Abnormal nonspecific bowel-gas pattern with diffuse air-filled distention of small and large bowel loops. Moderate volume colonic stool.
[2025-08-15] MEDS: LACTULOSE 20Gm/30ML SOLN PO SCH (17:03)
[2025-08-15] MEDS: ACETAMINOPHEN 325 MG TAB PO PRN (22:50)
[2025-08-16] VITALS (14 sets, daily range): BP systolic 127–151; BP diastolic 86–102; PULSE 65–120; RESP 18–20; TEMP 97.6–98.4; O2SAT 92–98
--- NOTE | 2025-08-16 12:28 | DVHPN2 ---
Subjective Patient reporting generalized abdominal pain Reviewed: Care Plan, H&P, Labs, Medications Changes from previous H/P or p: No Changes General: Per HPI Eyes: No Pain, No Vision change, No Conjunctivae inflammation, No Eyelid inflammation, No Other, No Redness ENT: No Ear pain, No Ear discharge, No Nose pain, No Nose discharge, No Nose congestion, No Mouth pain, No Mouth swelling, No Throat pain, No Throat swelling, No Other Cardiovascular: No Chest Pain, No Palpitations, No Orthopnea, No Paroxysmal Noc. Dyspnea, No Edema, No Lt Headedness, No Other Respiratory: No Cough, No Dry, No Shortness of breath, No SOB with excertion, No Wheezing, No Hemoptysis, No Pleuritic Pain, No Sputum, No Other Gastrointestinal: No Nausea, No Vomiting, No Abdominal Pain, No Diarrhea, No Constipation, No Melena, No Hematochezia, No Other Genitourinary: No Dysuria, No Frequency, No Incontinence, No Hematuria, No Retention, No Other Musculoskeletal: No other, No neck pain, No shoulder pain, No arm pain, No back pain, No hand pain, No leg pain, No foot pain Skin: No Rash, No Lesions, No Jaundice, No Bruising, No Other Objective Vitals Vital Signs Date Time Temp Pulse Resp B/P (MAP) Pulse Ox O2 Delivery O2 Flow Rate FiO2 08/16/25 11:44 85 20 98 08/16/25 11:38 Room Air 0.0 08/16/25 11:38 21 08/16/25 09:01 98.2 138/90 (106) 98.2 Intake/Output Intake and Output 08/16/25 07:00 Intake Total 1200 ml Balance 1200 ml Intake Oral 1200 ml # Voids 8 # Bowel Movements 8 General Appearance: Alert, Oriented X3, Cooperative, No acute distress HEENT: Atraumatic, PERRLA Lungs: Clear to auscultation, Normal air movement Cardiovascular: Normal S1, Normal S2 Abdomen: Normal bowel sounds, Soft, No tenderness, No hepatospenomegaly Back: Flank Tenderness (Right) Musculoskeletal: Normal sensory function, Normal motor function Neuro: Normal speech Skin: Dry, Intact Psych/Mental Status: Mental status NL, Mood NL Medications Current Medications Medications Dose Ordered Sig/Curtis Route Start Time Stop Time Status Last Admin Dose Admin Ondansetron HCl 4 mg Q4HP PRN IV 08/11/25 14:30 Docusate Sodium 100 mg BIDPRN PRN PO 08/11/25 14:30 Acetaminophen 650 mg Q6HP PRN PO 08/11/25 14:30 08/15/25 22:50 650 MG Ipratropium [place] 0.5 mg Q6HWA NEB 08/11/25 18:00 08/16/25 11:38 0.5 MG Albuterol 2.5 mg Q6HWA NEB 08/11/25 18:00 08/16/25 11:38 2.5 MG Diagnostic Test (Pha) 1 strip ACHS 08/13/25 11:30 08/16/25 11:36 1 STRIP Insulin Human Regular HS SC 08/13/25 22:00 08/15/25 22:48 2 UNITS Insulin Human Regular AC SC 08/13/25 11:30 08/15/25 17:03 3 UNITS Dextrose 50 ml UD PRN IV 08/13/25 08:45 Tamsulosin HCl 0.4 mg QPM PO 08/13/25 18:00 08/15/25 16:58 0.4 MG Lactulose 30 ml Q6HR PO 08/15/25 18:00 08/16/25 11:12 30 ML Laboratory Results Laboratory Tests 08/15/25 05:52 Urinalysis Test 08/11/25 14:30 Urine Color Yellow (Yellow) Urine Clarity Clear (Clear) Urine pH 5.5 (5.0-9.0) Urine Specific [place] 1.019 (1.001-1.035) Urine Protein Trace (Negative) H Urine Ketones Trace (Negative) Urine Blood 2+ /uL (Negative) H Urine Nitrite Negative (Negative) Urine Bilirubin Negative (Negative) Urine Urobilinogen Normal mg/dL (Negative) Urine Leukocyte Esterase Negative /uL (Negative) Urine RBC 13 /hpf (0 - 3) Urine Microscopic WBC 5 /HPF (0-3) H Urine Squamous Epithelial Cells Few /hpf (<5) Urine Bacteria None seen /hpf (None Seen) Urine Mucus Few (None Seen) Urine Glucose 4+ mg/dL (Normal) H Labs and/or images reviewed: Labs reviewed by me, Image(s) reviewed by me Assessment/Plan Assessment/Plan Impression: -acute hypoxic respiratory failure -polysubstance abuse including amphetamines and nicotine -hematuria -Nephrolithiasis -acute kidney injury, probable vasomotor nephropathy -acute pneumonitis secondary to amphetamine use Plan: Events: No events overnight. Multiple BM's. Continues to have abdominal pain -repeat KUB -Gallbladder ultrasound -npo -continue tamsulosin -bowel regimen -gentle IV hydration -lorazepam PRN withdrawal symptoms -bronchodilators -repeat labs in a.m. Total time spent with patient discussing and formulating plan of care: 35 minutes. This medical document was created using an electronic medical record system with [employer] dictation system. Although this document has been carefully reviewed, there may still be some phonetic and typographical errors. These areas are purely typographical due to imperfections of the software programs, and do not reflect any compromise in the patient's medical care. Plan discussed with: Patient, Other (Rn) My Orders Orders - ABBIE TOSCANO NP Procedure Category Date Status Time Kub Abdomen Single XY 08/15/25 Resulted View 13:42 Lactulose Oral PHA 08/15/25 In Process 18:00 Gallbladder US 08/16/25 Logged 12:23 Kub Abdomen Single XY 08/16/25 Logged View 12:23 Npo (Nothing By DIET 08/16/25 Transmitted Mouth) Diet Lunch Complete Blood Count LAB 08/16/25 Verified 12:25 Metronidazole Ivpb PHA 08/16/25 Verified Flagyl 14:00 Date of Service: Aug 16, 2025 Billing Provider: ABBIE TOSCANO NP Common Visit Codes: [id number] INP/OBS CARE(HIGH) ABBIE TOSCANO NP Aug 16, 2025 12:28
[2025-08-16 13:22] LABS: Hematocrit 45.1 % (41.0-53.0); Hemoglobin 15.6 g/dL (13.5-17.5); Mean Corpuscular Hemoglobin 30.8 pg (28.0-32.0); Mean Corpuscular Volume 89.3 fL (80.0-100.0); Nucleated Red Blood Cells % 0.1 %
[2025-08-16] MEDS: SODIUM CHLORIDE 0.9% 1,000 ML IV SCH (13:31)
--- NOTE | 2025-08-16 13:37 | DVH ---
EXAM DESCRIPTION: US GALLBLADDER CLINICAL HISTORY: rule out cholecystitis COMPARISON: CT abdomen pelvis 08/13/25 TECHNIQUE: Using real-time ultrasonography multiple images of the abdomen were obtained. FINDINGS: Limited evaluation with poor visualization due to obscuring bowel gas. The liver measures 15.8 cm. No focal liver masses. The liver echongenicity is within normal limits. The pancreas is obscured by shadowing bowel gas. Gallstones noted in the gallbladder. Possible mild gallbladder wall thickening. Possible trace pericholecystic fluid. Negative sonographic Nash sign. The common bile duct measures 5 mm in diameter. There is no free intraperitoneal fluid. The right kidney measures 9.3cm. No right renal calculi or hydronephrosis. IMPRESSION: Limited evaluation due to obscuring bowel gas. Cholelithiasis with possible gallbladder wall thickening and possible trace pericholecystic fluid. However, the sonographic nash sign is negative. These findings are equivocal for acute cholecystitis. Recommend further evaluation with HIDA scan.
--- NOTE | 2025-08-16 17:25 | DVH ---
Date: 08/16/2025 01:15 PM Examination: XY KUB ABDOMEN SINGLE VIEW History: assess small bowel distention COMPARISON: XY KUB ABDOMEN SINGLE VIEW on DOS: 08/15/25 TECHNIQUE: Frontal views of the abdomen was obtained. FINDINGS: Redemonstration of gaseous distension of the colon and to a lesser degree the small bowel. There is gas within the colon. Large colonic stool burden. IMPRESSION: Ileus type pattern with extensive colonic stool burden. No change when compared to prior.
[2025-08-17] VITALS (15 sets, daily range): BP systolic 105–142; BP diastolic 60–99; PULSE 71–100; RESP 14–20; TEMP 97.3–98.2; O2SAT 86–100
--- NOTE | 2025-08-17 12:16 | DVHPN2 ---
Subjective Patient reporting generalized abdominal pain Reviewed: Care Plan, H&P, Labs, Medications Changes from previous H/P or p: No Changes General: Per HPI Eyes: No Pain, No Vision change, No Conjunctivae inflammation, No Eyelid inflammation, No Other, No Redness ENT: No Ear pain, No Ear discharge, No Nose pain, No Nose discharge, No Nose congestion, No Mouth pain, No Mouth swelling, No Throat pain, No Throat swelling, No Other Cardiovascular: No Chest Pain, No Palpitations, No Orthopnea, No Paroxysmal Noc. Dyspnea, No Edema, No Lt Headedness, No Other Respiratory: No Cough, No Dry, No Shortness of breath, No SOB with excertion, No Wheezing, No Hemoptysis, No Pleuritic Pain, No Sputum, No Other Gastrointestinal: No Nausea, No Vomiting, No Abdominal Pain, No Diarrhea, No Constipation, No Melena, No Hematochezia, No Other Genitourinary: No Dysuria, No Frequency, No Incontinence, No Hematuria, No Retention, No Other Musculoskeletal: No other, No neck pain, No shoulder pain, No arm pain, No back pain, No hand pain, No leg pain, No foot pain Skin: No Rash, No Lesions, No Jaundice, No Bruising, No Other Objective Vitals Vital Signs Date Time Temp Pulse Resp B/P (MAP) Pulse Ox O2 Delivery O2 Flow Rate FiO2 08/17/25 11:45 76 14 100 08/17/25 11:38 Nasal Cannula* 3 32 08/17/25 08:47 98.0 114/71 (85) 98.0 Intake/Output Intake and Output 08/17/25 07:00 Intake Total 1100 ml Output Total 400 ml Balance 700 ml Intake Oral 800 ml IV Total 300 ml Output Urine Total 400 ml # Voids 5 General Appearance: Alert, Oriented X3, Cooperative, No acute distress HEENT: Atraumatic, PERRLA Lungs: Clear to auscultation, Normal air movement Cardiovascular: Normal S1, Normal S2 Abdomen: Normal bowel sounds, Soft, No tenderness, No hepatospenomegaly Back: Flank Tenderness (Right) Musculoskeletal: Normal sensory function, Normal motor function Neuro: Normal speech Skin: Dry, Intact Psych/Mental Status: Mental status NL, Mood NL Medications Current Medications Medications Dose Ordered Sig/Curtis Route Start Time Stop Time Status Last Admin Dose Admin Ondansetron HCl 4 mg Q4HP PRN IV 08/11/25 14:30 Docusate Sodium 100 mg BIDPRN PRN PO 08/11/25 14:30 Acetaminophen 650 mg Q6HP PRN PO 08/11/25 14:30 08/15/25 22:50 650 MG Ipratropium [place] 0.5 mg Q6HWA NEB 08/11/25 18:00 08/17/25 11:36 0.5 MG Albuterol 2.5 mg Q6HWA NEB 08/11/25 18:00 08/17/25 11:36 2.5 MG Diagnostic Test (Pha) 1 strip ACHS 08/13/25 11:30 08/17/25 11:15 1 STRIP Insulin Human Regular HS SC 08/13/25 22:00 08/15/25 22:48 2 UNITS Insulin Human Regular AC SC 08/13/25 11:30 08/15/25 17:03 3 UNITS Dextrose 50 ml UD PRN IV 08/13/25 08:45 Tamsulosin HCl 0.4 mg QPM PO 08/13/25 18:00 08/16/25 17:10 0.4 MG Lactulose 30 ml Q6HR PO 08/15/25 18:00 08/17/25 11:15 30 ML Metronidazole 100 ml @ 100 mls/hr Q8HR IV 08/16/25 14:00 08/17/25 06:14 100 MLS/HR Sodium Chloride 1,000 ml @ 75 mls/hr [id number] IV 08/16/25 12:30 08/17/25 01:50 75 MLS/HR Laboratory Results Laboratory Tests 08/15/25 05:52 08/16/25 12:54 Urinalysis Test 08/11/25 14:30 Urine Color Yellow (Yellow) Urine Clarity Clear (Clear) Urine pH 5.5 (5.0-9.0) Urine Specific [place] 1.019 (1.001-1.035) Urine Protein Trace (Negative) H Urine Ketones Trace (Negative) Urine Blood 2+ /uL (Negative) H Urine Nitrite Negative (Negative) Urine Bilirubin Negative (Negative) Urine Urobilinogen Normal mg/dL (Negative) Urine Leukocyte Esterase Negative /uL (Negative) Urine RBC 13 /hpf (0 - 3) Urine Microscopic WBC 5 /HPF (0-3) H Urine Squamous Epithelial Cells Few /hpf (<5) Urine Bacteria None seen /hpf (None Seen) Urine Mucus Few (None Seen) Urine Glucose 4+ mg/dL (Normal) H Labs and/or images reviewed: Labs reviewed by me, Image(s) reviewed by me Assessment/Plan Assessment/Plan Impression: -acute hypoxic respiratory failure -polysubstance abuse including amphetamines and nicotine -hematuria -Nephrolithiasis -acute kidney injury, probable vasomotor nephropathy -acute pneumonitis secondary to amphetamine use Plan: Events: Repeat KUB revealed as ileus presentation as well as severe stool burden. Long discussion made with the patient's stay regarding plan of care in the need to not refuse any of his bowel regimen. Patient verbalized understanding. Also instructed patient to get out of bed and ambulate. -GI consultation -npo -continue tamsulosin -out of bed as tolerated -bowel regimen -D5 NS at 100 mL/hour -bronchodilators -repeat labs in a.m. Total time spent with patient discussing and formulating plan of care: 35 minutes. This medical document was created using an electronic medical record system with [employer] dictation system. Although this document has been carefully reviewed, there may still be some phonetic and typographical errors. These areas are purely typographical due to imperfections of the software programs, and do not reflect any compromise in the patient's medical care. Plan discussed with: Patient, Other (RN) My Orders Orders - ABBIE TOSCANO NP Procedure Category Date Status Time Gallbladder US 08/16/25 Resulted 12:23 Kub Abdomen Single XY 08/16/25 Resulted View 12:23 Npo (Nothing By DIET 08/16/25 Transmitted Mouth) Diet Lunch Metronidazole PHA 08/16/25 In Process 500mg/100ml (Flagyl 14:00 Sodium Chloride 0.9% PHA 08/16/25 In Process 12:30 * Gi Dvh [employer] Mixing Operator CONS 08/16/25 Transmitted 15:49 Nm Hida Scan NM 08/16/25 Logged 15:49 Fleet Enema Adult PHA 08/17/25 Logged 12:15 Oob To Chair BIANKA 08/17/25 In Process 12:07 Date of Service: Aug 17, 2025 Billing Provider: ABBIE OTSCANO NP Common Visit Codes: [id number] INP/OBS CARE(HIGH) ABBIE TOSCANO NP Aug 17, 2025 12:16
[2025-08-17] MEDS: FLEET ENEMA(ADULT) 135 ML PR ONE (12:37)
[2025-08-17] MEDS: D5W/SOD CHLO 0.9% 1,000 ML IV SCH (12:37)
[2025-08-18] VITALS (15 sets, daily range): BP systolic 109–141; BP diastolic 57–89; PULSE 66–94; RESP 14–20; TEMP 97.4–99.3; O2SAT 93–100
--- NOTE | 2025-08-18 11:01 | DVH ---
CLINICAL INFORMATION: Rule out cholecystitis. TECHNIQUE: 5.1 mCi of Choletec were administered intravenously. Images of the upper abdomen were obtained at multiple intervals up to a total time of 60 minutes. COMPARISON: US GALLBLADDER on DOS: 08/16/25 FINDINGS: There is mild activity visualized in the expected location of the gallbladder toward the end of the initial 60 minutes of imaging, which appears to correspond to the location of the gallbladder on previous CT Images. IMPRESSION: There is mild activity in the expected location of the gallbladder. No scintigraphic evidence of acute cholecystitis.
[2025-08-18] MEDS ORDERED: DOCU-94 PO (12:54)
[2025-08-18] MEDS ORDERED: TRAM-626 PO (12:54)
--- NOTE | 2025-08-18 12:59 | DVHDS2 ---
Discharge Summary Date of Admission Aug 11, 2025 at 14:26 Date of Discharge: Aug 18, 2025 Admitting Diagnosis Pneumonitis Labs/Diagnostic Data: Laboratory Results Test 08/18/25 05:08 08/16/25 12:54 08/15/25 05:52 08/12/25 17:32 POC Glucose 98 mg/dl (70-106) White Blood Count 13.7 10^3/uL (4.4-10.8) Red Blood Count 5.05 10^6/uL (4.5-5.90) Hemoglobin 15.6 g/dL (13.5-17.5) Hematocrit 45.1 % (41.0-53.0) Mean Corpuscular Volume 89.3 fL (80.0-100.0) Mean Corpuscular Hemoglobin 30.8 pg (28.0-32.0) Mean Corpuscular Hemoglobin Concent 34.5 g/dL (32.0-36.0) Red Cell Distribution Width 14.6 % (11.8-14.3) Platelet Count 258 10^3/uL (140-450) Mean Platelet Volume 8.3 fL (6.9-10.8) Neutrophils (%) (Auto) 63.4 % (37.0-80.0) Lymphocytes (%) (Auto) 25.4 % (10.0-50.0) Monocytes (%) (Auto) 10.1 % (0.0-12.0) Eosinophils (%) (Auto) 0.5 % (0.0-7.0) Basophils (%) (Auto) 0.6 % (0.0-2.0) Neutrophils # (Auto) 8.7 10 ^3/uL (1.6-8.6) Lymphocytes # (Auto) 3.5 10 ^3/uL (0.4-5.4) Monocytes # (Auto) 1.4 10 ^3/uL (0-1.3) Eosinophils # (Auto) 0.1 10 ^3/uL (0-0.8) Basophils # (Auto) 0.1 10 ^3/uL (0-0.2) Nucleated Red Blood Cells 0.1 % Sodium Level 138 mmol/L (136-145) Potassium Level 4.6 mmol/L (3.5-5.1) Chloride Level 103 mmol/L (98-107) Carbon Dioxide Level 27 mmol/L (20-31) Anion Gap 8 (5-15) Blood Urea Nitrogen 24 mg/dL (9-23) Creatinine 1.10 mg/dL (0.700-1.30) Glomerular Filtration Rate Calc 71 mL/min (>90) BUN/Creatinine Ratio 21.8 (10.0-20.0) Serum Glucose 152 mg/dL (74-106) Calcium Level 9.3 mg/dL (8.7-10.4) Total Bilirubin 0.4 mg/dL (0.2-1.0) Aspartate Amino Transferase (AST) 18 U/L (13-40) Alanine Aminotransferase (ALT) 21 U/L (7-40) Alkaline Phosphatase 56 U/L (46-116) Total Protein 6.7 g/dL (5.7-8.2) Albumin 4.0 g/dL (3.2-4.8) Free Prostate Specific Antigen 0.18 ng/mL (N/A) Percent Free Prostate Specific Ag 36.0 % (.) Prostate Specific Antigen Total 0.5 ng/mL (0.0-4.0) Test 08/11/25 14:30 08/11/25 10:52 Urine Color Yellow (Yellow) Urine Clarity Clear (Clear) Urine pH 5.5 (5.0-9.0) Urine Specific [place] 1.019 (1.001-1.035) Urine Protein Trace (Negative) Urine Ketones Trace (Negative) Urine Blood 2+ /uL (Negative) Urine Nitrite Negative (Negative) Urine Bilirubin Negative (Negative) Urine Urobilinogen Normal mg/dL (Negative) Urine Leukocyte Esterase Negative /uL (Negative) Urine RBC 13 /hpf (0 - 3) Urine Microscopic WBC 5 /HPF (0-3) Urine Squamous Epithelial Cells Few /hpf (<5) Urine Bacteria None seen /hpf (None Seen) Urine Mucus Few (None Seen) Urine Glucose 4+ mg/dL (Normal) Urine Opiates Screen Neg (NEGATIVE) Urine Fentanyl Screen Neg (NEGATIVE) Urine Barbiturates Screen Neg (NEGATIVE) Urine Phencyclidine Screen Neg (NEGATIVE) Urine Amphetamines Screen Pos (NEGATIVE) Urine Benzodiazepines Screen Neg (NEGATIVE) Urine Cocaine Screen Neg (NEGATIVE) Urine Cannabinoids Screen Neg (NEGATIVE) Troponin I High Sensitivity 18 ng/L (</=54) Other Laboratory Tests 08/16/25 12:54 08/15/25 05:52 Brief Hx & Hospital Course: History of Present Illness Manuel Noyola is a 70-year-old male with past medical history of diabetes, hypertension, and hyperlipidemia, who came to the hospital for shortness of breath. Patient states he has been short of breath for about 1 week. He states he has had a cough and shortness of breath for about 1 week. He states he began having chest pain when he coughs and now the pain goes all the was down to his abdomen when he coughs prompting him to come to the hospital. Patient denied any drug use and stated he quite using drugs years ago, UDS was positive for methamphetamines. Course of hospitalization: Patient was started on IV antibiotic therapy, and weaned off of O2 supplementation. Patient began having severe abdominal distention with abdominal pain and constipation. CT scan with IV contrast was performed which revealed cholelithiasis, severe stool burden. Questionable bowel obstruction was treated with NPO as well as Protonix, laxatives. Patient has had multiple BMs with abdominal distention improving. Patient had gallbladder ultrasound which was questionable for cholecystitis, followed by HIDA scan which was negative for cholecystitis. Patient will be introduced to oral intake, and be subsequently discharged home. He does have residual pain to his right ribs, probably costochondritis from coughing. Patient was also educated on the need to stop using illicit drugs. He is instructed to follow up with the discharge Clinic in one week, as well as his PCP in 1-2 weeks. He will be prescribed tramadol 50 mg q.12 hours as needed for [id number] pain as well as Colace 100 mg p.o. b.i.d. to be taken daily unless having diarrhea. Physical examination General: Alert and Oriented x3. No acute distress. Well-nourished. Eyes: EOMI. Anicteric. HENT: Moist mucous membranes. Lungs: Clear to auscultation bilaterally. No accessory muscle use. Cardiovascular: Regular rate and rhythm. No murmur. No JVD. Abdomen: Soft, non-tender and non-distended. No palpable masses. Extremities: No edema. Non-tender. Skin: No rashes or lesions. Warm. Neurologic: No focal neurological deficits. CN II-XII grossly intact, but not individually tested. Psychiatric: Cooperative. Appropriate mood and affect. Total time spent with patient discussing and formulating plan of care: 35 minutes. This medical document was created using an electronic medical record system with [employer] dictation system. Although this document has been carefully reviewed, there may still be some phonetic and typographical errors. These areas are purely typographical due to imperfections of the software programs, and do not reflect any compromise in the patient's medical care. Condition at Discharge: Fair Final Diagnosis/Problems List -acute hypoxic respiratory failure -polysubstance abuse including amphetamines and nicotine -hematuria -Nephrolithiasis -acute kidney injury, probable vasomotor nephropathy -acute pneumonitis secondary to amphetamine use -bowel obstruction ruled out -partial ileus -severe constipation -cholelithiasis, ruled out cholecystitis Discharge Disposition: Home Discharge Instruct/Medications Diet: Regular Activity: No Restrictions, As Tolerated Follow Up/Referral: Discharge Clinic in one week Follow up with the PCP in 1-2 weeks Medications: Ultram 50 mg p.o. q.12 hours as needed for [id number] pain Scheduled Docusate Sodium (Colace), 1 CAP PO BID Scheduled PRN Tramadol HCl (Tramadol HCl), 50 MG PO Q12HP PRN 36 Discharge Statement: "Patient was advised to return to the ER or call 911 if any headaches, dizziness, shortness of breath, chest pain, abdominal pain, bleeding, fevers, or worsening of medical condition. Patient was counseled about treatment plan, medications, possible side effects, patientverbalized understanding. All questions were answered to the best of my ability. This discharge took greater then 30 minutes in planning, reviewing documentation, counseling the patient, and discussing with other team members." ASSESSMENT ASSESSMENT Assessment Pneumonitis Acute hypoxic respiratory failure Date of Service: Aug 18, 2025 Billing Provider: ABBIE TOSCANO NP Common Visit Codes: 23349-AZJ/OBS DISCH DAY >30min Secondary Visit Codes: [id number]-[id number] CHNG SMOKING >10MIN ABBIE TOSCANO NP Aug 18, 2025 12:59
[2025-08-18] MEDS: ONDANSETRON HCL 4 MG/2 ML VIAL IV PRN (14:08)
[2025-08-18] MEDS: OMNIPAQUE 12mg/ml 500ml ORAL SOLUTION PO ONE (17:02)
[2025-08-18 17:14] LABS: Hematocrit 39.8 % (41.0-53.0); Hemoglobin 13.3 g/dL (13.5-17.5); Mean Corpuscular Hemoglobin 29.8 pg (28.0-32.0); Mean Corpuscular Volume 89.4 fL (80.0-100.0); Nucleated Red Blood Cells % 0.1 %
[2025-08-18 17:30] LABS: Alanine Aminotransferase 22 U/L (7-40); Albumin 3.6 g/dL (3.2-4.8); Alkaline Phosphatase 50 U/L (46-116); Anion Gap 6 (5-15); BUN/Creatinine Ratio 18.9 (10.0-20.0); Bilirubin, Total 0.5 mg/dL (0.2-1.0); Blood Urea Nitrogen 20 mg/dL (9-23); Carbon Dioxide 27 mmol/L (20-31); Chloride 106 mmol/L (98-107); Potassium 4.3 mmol/L (3.5-5.1); Sodium 139 mmol/L (136-145); Total Protein 5.9 g/dL (5.7-8.2)
--- NOTE | 2025-08-18 17:59 | DVH ---
Date: 08/18/2025 02:38 PM Examination: XY KUB ABDOMEN SINGLE VIEW History: n/v COMPARISON: XY KUB ABDOMEN SINGLE VIEW on DOS: 08/16/25, XY KUB ABDOMEN SINGLE VIEW on DOS: 08/15/25 TECHNIQUE: Frontal views of the abdomen was obtained. FINDINGS: Scattered gas throughout nondilated small and large bowel. Mild gas distention of small and large bowel loops. Bony demineralization. No radiopaque foreign body. No abnormal calcifications. IMPRESSION: 1. Persistent gas distention of small-bowel loops which could reflect ileus.
[2025-08-18 18:03] LABS: Calcium 8.2 mg/dL (8.7-10.4); Glucose 112 mg/dL (74-106)
--- NOTE | 2025-08-18 18:51 | DVH ---
EXAM: CT CT AB PEL WITH ORAL CON ONLY HISTORY: rule out obstruction TECHNIQUE: Volumetric multidetector CT images of the abdomen and pelvis were obtained with oral contrast only. All CT scans at this facility use dose modulation, iterative reconstruction, and/or weight based dosing when appropriate to reduce radiation dose to as low as reasonably achievable. COMPARISON: None FINDINGS: [LOWER CHEST]: The partially visualized lung bases are clear without a pleural effusion. [LIVER]: Normal hepatic size without suspicious focal lesion. [GALLBLADDER AND BILIARY TREE]:Layering gallstones. [SPLEEN]:Unremarkable. [PANCREAS]: Unremarkable. [ADRENAL GLANDS]:Mild left adrenal gland thickening. [KIDNEYS]: No hydronephrosis. No nephroureterolithiasis. No suspicious focal lesion. [BLADDER]:Circumferential bladder wall thickening, which may be seen in the setting of acute versus chronic cystitis and correlate with urinalysis. [REPRODUCTIVE ORGANS]: Unremarkable. [BOWEL/MESENTERY]: Stomach is normal. Oral contrast extending to the distal small bowel. No CT evidence of bowel obstruction. [ASCITES]: Absent [LYMPHADENOPATHY]: No pathologically enlarged lymph nodes by CT size criteria [VASCULATURE]: No aneurysmal dilatation. [ABDOMINAL WALL]: Unremarkable. [MUSCULOSKELETAL]: Fragmentation and areas of heterotopic ossification along the margins of bilateral iliac wings likely related to prior injury. Multifocal degenerative change of the visualized spine. IMPRESSION: 1. No CT evidence of bowel obstruction. 2. Circumferential bladder wall thickening, which may be seen in the setting of acute versus chronic cystitis and correlate with urinalysis. 3. Wcwt-zz-pbfskmik stool burden. Cholelithiasis without CT evidence of acute cholecystitis.
[2025-08-18] MEDS: METOCLOPRAMIDE HCL 5MG/ml INJ 2ml VIAL IV SCH (22:22)
--- NOTE | 2025-08-18 22:30 | DVHINCON2 ---
Date of service: Aug 18, 2025 Referring Physician Galen Sosa Reason for Consultation Abd pain and distension History of Present Illness Manuel Noyola is a 70-year-old male with past medical history of diabetes, hypertension, and hyperlipidemia, who came to the hospital for shortness of valerie ath. Patient states he has been short of breath for about 1 week. He states he has had a cough and shortness of breath for about 1 week. He states he began having chest pain when he coughs and now the pain goes all the was down to his abdomen when he coughs prompting him to come to the hospital. Patient denied any drug use and stated he quite using drugs years ago, UDS was positive for methamphetamines. Patient was started on IV antibiotic therapy, and weaned off of O2 supplementation. Patient began having severe abdominal distention with abdominal pain and constipation. CT scan with IV contrast was performed which revealed cholelithiasis, severe stool burden. Questionable bowel obstruction was treated with NPO as well as Protonix, laxatives. Patient has had multiple BMs with abdominal distention improving. Patient had gallbladder ultrasound which was questionable for cholecystitis, followed by HIDA scan which was negative for cholecystitis. Patient will be introduced to oral intake, and be subsequently discharged home. He does have residual pain to his right ribs, probably costochondritis from coughing. Discharge planning was in progress however patient developed an episode of nausea and vomiting after eating and continued to have some abdominal distention Past Medical History Cardiovascular: HTN, hyperipidemia Endocrine: Diabetes Past Surgical History Past Surgical History: Other (right foot, right leg) Family History: Diabetes mellitus G8 MOTHER G8 FATHER FH: cancer G8 FATHER Social History Smoke: Quit (Monday08/03/2025) ALCOHOL: rare Allergies: Coded Allergies: NO KNOWN ALLERGIES (Unverified , 08/11/25) per patient Home Meds Active Scripts Docusate Sodium (Colace) 100 Mg Cap, 1 CAP PO BID for 30 Days, #30 CAP Prov:ABBIE SOSA [employer] OPERATOR 08/18/25 Tramadol HCl (Tramadol HCl) 50 Mg Tab, 50 MG PO Q12HP PRN for 7 Days, #14 TAB Prov:ABBIE SOSA [employer] OPERATOR 08/18/25 Current Medications Current Medications Medications (Trade) Dose Ordered Sig/Curtis Route PRN Reason Start Time Stop Time Status Last Admin Metoclopramide HCl (Reglan Injection) 10 mg Q8HR IV 08/18/25 22:00 Vital Signs Vital Signs Date Time Temp Pulse Resp B/P (MAP) Pulse Ox O2 Delivery O2 Flow Rate FiO2 08/18/25 21:00 99.3 76 18 130/72 (91) 97 99.3 08/18/25 19:17 Room Air 0.0 08/18/25 19:17 21 Physical Exam Hemodynamically stable Full PE deferred Labs/Diagnostic Data Labs Test 08/18/25 20:35 08/18/25 16:47 08/12/25 17:32 08/11/25 14:30 Range/Units POC Glucose 103 70-106 mg/dl White Blood Count 9.8 # 4.4-10.8 10^3/uL Red Blood Count 4.46 L 4.5-5.90 10^6/uL Hemoglobin 13.3 L 13.5-17.5 g/dL Hematocrit 39.8 #L 41.0-53.0 % Mean Corpuscular Volume 89.4 80.0-100.0 fL Mean Corpuscular Hemoglobin 29.8 28.0-32.0 pg Mean Corpuscular Hemoglobin Concent 33.3 32.0-36.0 g/dL Red Cell Distribution Width 14.4 H 11.8-14.3 % Platelet Count 244 140-450 10^3/uL Mean Platelet Volume 8.1 6.9-10.8 fL Neutrophils (%) (Auto) 73.7 37.0-80.0 % Lymphocytes (%) (Auto) 17.3 10.0-50.0 % Monocytes (%) (Auto) 6.5 0.0-12.0 % Eosinophils (%) (Auto) 1.9 0.0-7.0 % Basophils (%) (Auto) 0.6 0.0-2.0 % Neutrophils # (Auto) 7.2 1.6-8.6 10 ^3/uL Lymphocytes # (Auto) 1.7 0.4-5.4 10 ^3/uL Monocytes # (Auto) 0.6 0-1.3 10 ^3/uL Eosinophils # (Auto) 0.2 0-0.8 10 ^3/uL Basophils # (Auto) 0.1 0-0.2 10 ^3/uL Nucleated Red Blood Cells 0.1 % Sodium Level 139 136-145 mmol/L Potassium Level 4.3 3.5-5.1 mmol/L Chloride Level 106 98-107 mmol/L Carbon Dioxide Level 27 20-31 mmol/L Anion Gap 6 5-15 Blood Urea Nitrogen 20 9-23 mg/dL Creatinine 1.06 0.700-1.30 mg/dL Glomerular Filtration Rate Calc 75 >90 mL/min BUN/Creatinine Ratio 18.9 10.0-20.0 Serum Glucose 112 H 74-106 mg/dL Calcium Level 8.2 L 8.7-10.4 mg/dL Total Bilirubin 0.5 0.2-1.0 mg/dL Aspartate Amino Transferase (AST) 14 13-40 U/L Alanine Aminotransferase (ALT) 22 7-40 U/L Alkaline Phosphatase 50 46-116 U/L Total Protein 5.9 5.7-8.2 g/dL Albumin 3.6 3.2-4.8 g/dL Free Prostate Specific Antigen 0.18 N/A ng/mL Percent Free Prostate Specific Ag 36.0 . % Prostate Specific Antigen Total 0.5 0.0-4.0 ng/mL Urine Color Yellow Yellow Urine Clarity Clear Clear Urine pH 5.5 5.0-9.0 Urine Specific [place] 1.019 1.001-1.035 Urine Protein Trace H Negative Urine Ketones Trace Negative Urine Blood 2+ H Negative /uL Urine Nitrite Negative Negative Urine Bilirubin Negative Negative Urine Urobilinogen Normal Negative mg/dL Urine Leukocyte Esterase Negative Negative /uL Urine RBC 13 0 - 3 /hpf Urine Microscopic WBC 5 H 0-3 /HPF Urine Squamous Epithelial Cells Few <5 /hpf Urine Bacteria None seen None Seen /hpf Urine Mucus Few None Seen Urine Glucose 4+ H Normal mg/dL Urine Opiates Screen Neg NEGATIVE Urine Fentanyl Screen Neg NEGATIVE Urine Barbiturates Screen Neg NEGATIVE Urine Phencyclidine Screen Neg NEGATIVE Urine Amphetamines Screen Pos NEGATIVE Urine Benzodiazepines Screen Neg NEGATIVE Urine Cocaine Screen Neg NEGATIVE Urine Cannabinoids Screen Neg NEGATIVE Test 08/11/25 10:52 Range/Units Troponin I High Sensitivity 18 </=54 ng/L Gallbladder USG IMPRESSION: Limited evaluation due to obscuring bowel gas. Cholelithiasis with possible gallbladder wall thickening and possible trace pericholecystic fluid. However, the sonographic lo sign is negative. These findings are equivocal for acute cholecystitis. Recommend further evaluation with HIDA scan. Problems(with codes): (1) Cholelithiasis (2) Constipation (3) Ileus (4) Costochondritis, acute (5) Pneumonitis (6) Chest pain of unknown etiology (7) Leukocytosis Plan/Recommendation Plan Patient is NPO If there is persistent nausea vomiting we will insert NG tube to low intermittent suction Get Gastrografin small-bowel series rule out bowel obstruction KUB in am Patient is on gentle laxatives There was concern for cholelithiasis with possible mild cholecystitis, HIDA scan was nondiagnostic but essentially negative and liver enzymes are normal Broaden antibiotic coverage by adding Rocephin 1 g daily Monitor labs Supportive care Surgical consult if symptoms persist Plan discussed with: Other (Galen Sosa) YEIMY ARREAGA MD Aug 18, 2025 22:30
[2025-08-19 01:00] VITALS: BP 142/83; PULSE 74; RESP 18; TEMP 99.1; O2SAT 96
[2025-08-19 05:00] VITALS: BP 117/74; PULSE 76; RESP 18; TEMP 99; O2SAT 96
[2025-08-19 08:52] VITALS: BP 130/67; PULSE 76; RESP 14; TEMP 98.1; O2SAT 98
[2025-08-19 10:00] VITALS: O2SAT 98
--- NOTE | 2025-08-19 12:56 | DVHPN2 ---
Subjective Patient reporting generalized abdominal pain Reviewed: Care Plan, H&P, Labs, Medications Changes from previous H/P or p: No Changes General: Per HPI Eyes: No Pain, No Vision change, No Conjunctivae inflammation, No Eyelid inflammation, No Other, No Redness ENT: No Ear pain, No Ear discharge, No Nose pain, No Nose discharge, No Nose congestion, No Mouth pain, No Mouth swelling, No Throat pain, No Throat swelling, No Other Cardiovascular: No Chest Pain, No Palpitations, No Orthopnea, No Paroxysmal Noc. Dyspnea, No Edema, No Lt Headedness, No Other Respiratory: No Cough, No Dry, No Shortness of breath, No SOB with excertion, No Wheezing, No Hemoptysis, No Pleuritic Pain, No Sputum, No Other Gastrointestinal: No Nausea, No Vomiting, No Abdominal Pain, No Diarrhea, No Constipation, No Melena, No Hematochezia, No Other Genitourinary: No Dysuria, No Frequency, No Incontinence, No Hematuria, No Retention, No Other Musculoskeletal: No other, No neck pain, No shoulder pain, No arm pain, No back pain, No hand pain, No leg pain, No foot pain Skin: No Rash, No Lesions, No Jaundice, No Bruising, No Other Objective Vitals Vital Signs Date Time Temp Pulse Resp B/P (MAP) Pulse Ox O2 Delivery O2 Flow Rate FiO2 08/19/25 10:00 98 Room Air* 0 21 08/19/25 08:52 98.1 76 14 130/67 (88) 98.1 Intake/Output Intake and Output 08/19/25 07:00 Intake Total 1350 ml Balance 1350 ml Intake Oral 1250 ml IV Total 100 ml # Voids 6 General Appearance: Alert, Oriented X3, Cooperative, No acute distress HEENT: Atraumatic, PERRLA Lungs: Clear to auscultation, Normal air movement Cardiovascular: Normal S1, Normal S2 Abdomen: Normal bowel sounds, Soft, No tenderness, No hepatospenomegaly Back: Flank Tenderness (Right) Musculoskeletal: Normal sensory function, Normal motor function Neuro: Normal speech Skin: Dry, Intact Psych/Mental Status: Mental status NL, Mood NL Medications Current Medications Medications Dose Ordered Sig/Ucrtis Route Start Time Stop Time Status Last Admin Dose Admin Ondansetron HCl 4 mg Q4HP PRN IV 08/11/25 14:30 08/18/25 14:08 4 MG Docusate Sodium 100 mg BIDPRN PRN PO 08/11/25 14:30 Acetaminophen 650 mg Q6HP PRN PO 08/11/25 14:30 08/15/25 22:50 650 MG Ipratropium Diana 0.5 mg Q6HWA NEB 08/11/25 18:00 08/18/25 19:17 0.5 MG Albuterol 2.5 mg Q6HWA NEB 08/11/25 18:00 08/18/25 19:17 2.5 MG Diagnostic Test (Pha) 1 strip ACHS 08/13/25 11:30 08/19/25 12:00 1 STRIP Insulin Human Regular HS SC 08/13/25 22:00 08/15/25 22:48 2 UNITS Insulin Human Regular AC SC 08/13/25 11:30 08/15/25 17:03 3 UNITS Dextrose 50 ml UD PRN IV 08/13/25 08:45 Tamsulosin HCl 0.4 mg QPM PO 08/13/25 18:00 08/18/25 18:11 0.4 MG Lactulose 30 ml Q6HR PO 08/15/25 18:00 08/19/25 12:39 30 ML Dextrose/Sodium Chloride 1,000 ml @ 100 mls/hr Q10H IV 08/17/25 12:15 08/19/25 04:15 100 MLS/HR Metoclopramide HCl 10 mg Q8HR IV 08/18/25 22:00 08/19/25 05:40 10 MG Ceftriaxone Sodium 50 ml @ 100 mls/hr DAILY@09 IV 08/19/25 09:00 08/19/25 09:25 100 MLS/HR Laboratory Results Laboratory Tests 08/18/25 16:47 Chemistry Test 08/18/25 16:47 Albumin 3.6 g/dL (3.2-4.8) Calcium Level 8.2 mg/dL (8.7-10.4) L Total Protein 5.9 g/dL (5.7-8.2) LFT Test 08/18/25 16:47 Alanine Aminotransferase (ALT) 22 U/L (7-40) Alkaline Phosphatase 50 U/L (46-116) Aspartate Amino Transferase (AST) 14 U/L (13-40) Total Bilirubin 0.5 mg/dL (0.2-1.0) Urinalysis Test 08/11/25 14:30 Urine Color Yellow (Yellow) Urine Clarity Clear (Clear) Urine pH 5.5 (5.0-9.0) Urine Specific [place] 1.019 (1.001-1.035) Urine Protein Trace (Negative) H Urine Ketones Trace (Negative) Urine Blood 2+ /uL (Negative) H Urine Nitrite Negative (Negative) Urine Bilirubin Negative (Negative) Urine Urobilinogen Normal mg/dL (Negative) Urine Leukocyte Esterase Negative /uL (Negative) Urine RBC 13 /hpf (0 - 3) Urine Microscopic WBC 5 /HPF (0-3) H Urine Squamous Epithelial Cells Few /hpf (<5) Urine Bacteria None seen /hpf (None Seen) Urine Mucus Few (None Seen) Urine Glucose 4+ mg/dL (Normal) H Labs and/or images reviewed: Labs reviewed by me, Image(s) reviewed by me Assessment/Plan Assessment/Plan Impression: -acute hypoxic respiratory failure -polysubstance abuse including amphetamines and nicotine -hematuria -Nephrolithiasis -acute kidney injury, probable vasomotor nephropathy -acute pneumonitis secondary to amphetamine use Plan: Events: Patient was discharged yesterday, then had vomiting episode during lunchtime. Patient had CT scan of the abdomen and pelvis with oral contrast without any noted acute pathology with respect with the patient's bowels. Patient will be discharged home with a previous discharge plan. -GI consultation -npo -continue tamsulosin -out of bed as tolerated -bowel regimen -D5 NS at 100 mL/hour -bronchodilators -repeat labs in a.m. Total time spent with patient discussing and formulating plan of care: 35 minutes. This medical document was created using an electronic medical record system with [employer] dictation system. Although this document has been carefully reviewed, there may still be some phonetic and typographical errors. These areas are purely typographical due to imperfections of the software programs, and do not reflect any compromise in the patient's medical care. Plan discussed with: Patient, Other (RN) My Orders Orders - [employer] Procedure Category Date Status Time * Gi Dvh Home Visits Nurse CONS 08/18/25 Transmitted 14:03 Kub Abdomen Single XY 08/18/25 Resulted View 14:15 Ct Ab Pel With Oral CT 08/18/25 Resulted Con Only 14:33 * Surgical Consult CONS 08/18/25 Transmitted Metoclopramide PHA 08/18/25 In Process Injection (Reglan 22:00 Full Liq Diet DIET 08/19/25 Transmitted Lunch Date of Service: Aug 19, 2025 Billing Provider: ABBIE TOSCANO NP Common Visit Codes: [id number] INP/OBS CARE(HIGH) ABBIE TOSCANO NP Aug 19, 2025 12:56
[2025-08-19 13:00] VITALS: BP 111/71; PULSE 60; RESP 14; TEMP 98.8; O2SAT 95
--- NOTE | 2025-08-19 19:25 | DVHPN2 ---
Progress Note - Dictate Date Seen: Aug 19, 2025 (LATE ENTRYPATIENT SEEN AT 2:00 P.M.) Medical Necessity Reason Pt with a Central, PICC or Fol: No Subjective No new complaints, patient resting comfortably He denies any further nausea and vomiting Patient is tolerating a full liquid to pureed diet Abdomen is still distended but less No bowel movement today but patient had four bowel movements yesterday vital signs Vital Sign Date Time Temp Pulse Resp B/P (MAP) Pulse Ox O2 Delivery O2 Flow Rate FiO2 08/19/25 13:00 98.8 60 14 111/71 (84) 95 98.8 08/19/25 10:00 Room Air* 0 21 Total Intake and Output 08/18/25 08/18/25 08/19/25 15:00 23:00 07:00 Intake Total 1350 ml Balance 1350 ml objective General Appearance: Alert, Oriented X3, Cooperative, No acute distress HEENT: Atraumatic, PERRLA Lungs: Clear to auscultation, Normal air movement Cardiovascular: Normal S1, Normal S2 Abdomen: Normal bowel sounds, Soft, No tenderness, No hepatospenomegaly Back: Flank Tenderness (Right) Musculoskeletal: Normal sensory function, Normal motor function Neuro: Normal speech Skin: Dry, Intact Psych/Mental Status: Mental status NL, Mood NL laboratory and microbiology Laboratory Tests 08/18/25 16:47 Test 08/18/25 16:47 Range/Units Serum Glucose 112 H 74-106 mg/dL Problems(with codes): (1) Leukocytosis (2) Costochondritis, acute (3) Pneumonitis (4) Cholelithiasis (5) Ileus Prognosis Plan Advance diet as tolerated Patient was treated with IV Reglan Nodule was discontinued Discharge planning is in progress Patient will follow up in my office as an outpatient in 2-4 weeks to discuss further workup including elective colonoscopy Once again thank you for allowing me to participate in the care of this patient Dietary Evaluation Review Comments: Nutrition Recommendation: 1) advance to CCHO 75gm + cardiac diet as medically feasible 2) Monitor PO intake, lab values, weight trend, and I/O Expected Outcomes/Goals: GI symptoms to improve FU 3-5 days Plan discussed with: Patient, Other (Nurse Johnathan) YEIMY ARREAGA MD Aug 19, 2025 19:25
== END 2025-08-19 15:15 | disposition home or self-care (01) | DRG 189 ==
LOC: ER 08:14 → OVERFLOW 14:26 → EAST 21:55
PROVIDERS: ADMIT Nurse Practitioner Acute Care; ATTEND Nurse Practitioner Acute Care
DX: J96.01 Acute respiratory failure with hypoxia (principal); N17.0 Acute kidney failure with tubular necrosis; J70.2 Acute drug-induced interstitial lung disorders; I10 Essential (primary) hypertension; E11.9 Type 2 diabetes mellitus without complications; K56.7 Ileus, unspecified; J98.4 Other disorders of lung; N20.0 Calculus of kidney; E78.5 Hyperlipidemia, unspecified; M94.0 Chondrocostal junction syndrome [Tietze]; T43.625A Adverse effect of amphetamines, initial encounter; Y92.89 Other specified places as the place of occurrence of the external cause; K80.20 Calculus of gallbladder without cholecystitis without obstruction; F15.90 Other stimulant use, unspecified, uncomplicated; Z83.3 Family history of diabetes mellitus; Z87.891 Personal history of nicotine dependence
CPT/HCPCS: 36415; 71045; 74018; 74176; 74177; 76705; 76775; 78226; 80048; 80053; 80307; 81001; 82962; 84154; 84484; 85025; 93306; 94640; G0378; J1815; J2405; J3490